=== PATIENT | male | born 1965 | race African-American/Black ===

== ENCOUNTER 2016-09-07 12:50 | Inpatient (IN) ==
[2016-09-07] MEDS ORDERED: VANCOMYCIN INJ 1,000 MG in SODIUM CHLORIDE 0.9% 250 ML IV STA (13:36)
--- NOTE | 2016-09-07 13:44 | Emergency Department Note ---
Enrique Fernandez Manpreet, am scribing for, and in the presence of, Alex Almanza MD 13: 39. Cami Fernandez James D, MD, personally performed the services described in this documentation, ascribed by Hernandez Nunez in my presence, and it is both accurate and complete [id number] . Arrival - Arrival Chief Complaint: Abscess Stated Complaint: left knee abscess ED Nursing Triage Note: c/o having abscess to the left upper leg., states it started on thu., states now the leg is very painful, patient has LBKA, Mode of Arrival: Ambulatory Limitations: No Limitations Source: Patient Time Seen by Provider: 09/07/16 13:30 - History of Present Illness HPI Narrative: Pt is a 51 y/o male, with PMHx of HTN, left BKA, IDDM, and colon CA, who presents to the ED with CC of an abscess that he noticed started as a small bump on 09/03/16 on his left leg. Pt has a left BKA and the abscess has increased in area and the pt c/o pain and drainage, but denies fever or chills. Pt went to the [facility] and noticed the abscess grew on 09/04/16 so he went to the ED in [place], [place]. No other pains/complaints reported to ED. Onset (ago): day(s) (09/03/16) Consistency: constant Severity: moderate Severity scale (1-10): 4 Quality: aching Allergies/Adverse Reactions: Allergies Allergy/AdvReac Type Severity Reaction Status Date / Time No Known Allergies Allergy Verified 09/07/16 13:10 Home Medications: Home Medications Medication Instructions Recorded Confirmed Type Allopurinol 300 mg PO DAILY 09/07/16 09/07/16 History Gemfibrozil [Lopid] 600 mg PO DAILY 09/07/16 09/07/16 History Indomethacin [Indomethacin Cap] 50 mg PO QID PRN 09/07/16 09/07/16 History Insulin Glargine [Lantus] 96 unit SUBCUT QPM 09/07/16 09/07/16 History Losartan/Hydrochlorothiazide 1 each PO DAILY 09/07/16 09/07/16 History [Losartan-Hctz 100-25 mg Tab] Lovastatin 40 mg PO DAILY 09/07/16 09/07/16 History Pantoprazole Tab [Protonix Tab] 40 mg PO DAILY 09/07/16 09/07/16 History amLODIPine [Norvasc] 5 mg PO DAILY 09/07/16 09/07/16 History hydrALAZINE TAB [Apresoline Tab] 100 mg PO DAILY 09/07/16 09/07/16 History sitaGLIPtin [Januvia] 100 mg PO DAILY 09/07/16 09/07/16 History Review of System - Review of System 12 point system: reviewed and no additional remarkable complaints except as stated - Review of System Constitutional: Absent: chills, diaphoresis, fever, weakness Head/Ears/Nose/Throat: Absent: sore throat Respiratory: Absent: cough, respiratory distress Cardiovascular: Absent: chest pain, dyspnea on exertion Gastrointestinal: Absent: abdominal pain, nausea, vomiting Genitourinary male: Absent: dysuria Skin: Present: change in color, other (Abscess on left leg with discharge) Neurological: Absent: numbness, paresthesias Medical,Surgical,& Family Hx - Medical History Cardio: History of: Hypertension HEENT: History of: Eye Problem (GLASSES LASER) Endocrine: History of: Diabetes Mellitus (IDDM) Genitourinary: History of: Kidney Stones Gastrointestinal: History of: GI Problems (COLON MASS HITAL HERNIA) Other: History of: Cancer (COLON CA) - Surgical History HEENT Surgeries: Surgical HX of: Eye Surgery Abdominal Surgeries: Surgical HX of: Colonoscopy, EGD Orthopedic Surgeries: Surgical HX of;: Orthopedic Surgery (LEFT LEG AMPUTATION) - Family History Family History: Reports;: Family Cancer (MOM), Family Diabetes (PARENTS SISTER BROTHER), Family Heart Disease (DAD) - Social History Smoking Status: Never smoker Frequency of Alcohol Use: Frequently Type of Drug Use: None Exam Vital Signs: Vital Signs Temperature 98.9 F 09/07/16 13:04 Pulse Rate 97 H 09/07/16 13:04 Respiratory Rate 18 09/07/16 13:04 Blood Pressure 169/89 09/07/16 13:04 O2 Sat by Pulse Oximetry 98 09/07/16 13:04 GENERAL: This is a well-nourished well-developed black male in no apparent distress. VITAL SIGNS: Reviewed HEENT: Head is atraumatic and normocephalic. Pupils are equal round react to light. Extraocular movements are intact. Oropharynx is benign with moist mucous membranes. NECK: Neck is soft and supple without tenderness. There are no masses. There is no lymphadenopathy. LUNGS: Lungs are clear to auscultation. Chest rises symmetrically. There is no chest wall tenderness. CV: Heart is regular rate and rhythm without murmurs rubs or gallops. ABDOMEN: Abdomen is soft, nontender to palpation. There are no abdominal abnormal masses palpated. There is no organomegaly. Bowel sounds are present and active. SKIN: Patient has an area of induration, erythema, and central fluctuance in the left posterior thigh. This area is at the edge of prosthetic contact. No rash. EXTREMITIES: Patient has full range of motion without tenderness. There is no pedal edema. NEUROLOGIC: Awake alert and oriented 4. Cranial nerves II through XII are grossly intact. Motor is 5 over 5 in all extremities bilaterally. Course - Consultations Consultation #1: Discussed with Dr. Natarajan. Patient will be admitted to his service. Patient will undergo I&D of abscess of left lower extremity in the a.m. IV vancomycin was given to the patient in the emergency department. Initial orders written for Dr. Natarajan. He will assume patient's care upon arrival to the [facility]. Time: 13:44 Results - Labs CBC & BMP: 09/07/16 14:02 09/07/16 14:02 Lab Results: I have reviewed the patients labs - Diagnostic Findings Procedure: X-ray: image reviewed by me (Left femur x-ray: No evidence of soft tissue gas. No evidence of fracture.) Disposition Clinical Impression: Abscess of left lower extremity, Diabetes mellitus, Anemia Case discussed with: patient, patient's family Disposition: Still a Patient Condition: Stable Time of Disposition: 13:43
[2016-09-07 14:05] LABS: Basophils # 0.1 10*3/uL (0.0-0.2); Basophils % 0.6 % (0.0-0.8); Eosinophils # 0.2 10*3/uL (0.0-0.87); Eosinophils % 2.8 % (0.00-10.9); Hemoglobin 9.2 GM/DL (14.0-18.0); Immature Granulocytes % 0.5 %; Immature Granulocytes Absolute 0.04 #; Lymphocytes # 1.8 10*3/uL (1.4-4.0); Lymphocytes % 21.3 % (21.2-54.2); Mean Corpuscular HGB Conc 36.8 GM/DL (32-36); Mean Corpuscular Hemoglobin 31 PG (27-34); Mean Corpuscular Volume 85.3 FL (87-102); Mean Platelet Volume 11.8 FL (9.6-12.0); Monocytes # 0.7 10*3/uL (0.11-0.8); Monocytes % 8.2 % (1.7-12.7); Neutrophils # 5.7 10*3/uL (1.4-7.4); Neutrophils % 66.6 % (38.7-73.9); Platelet Count 179 T/CUMM (130-400); Red Blood Count 2.93 MC/CUMM (3.8-5.5); Red Cell Distribution Width 13.2 % (9.3-17.3); White Blood Count 8.5 T/CUMM (4-12)
--- NOTE | 2016-09-07 14:12 | XRay Report ---
XR femur LT Indication: Abscess Comparison: None available Findings: No evidence of acute fracture seen. Below the knee amputation has been performed. There is small amount of periosteal bone formation of the mid femur likely related to previous injury. The alignment of the joints appears normal. No degenerative change is present. No soft tissue abnormality is seen. Impression: No evidence of acute findings demonstrated. PROCEDURE INTERPRETED AT [facility] DEPARTMENT OF RADIOLOGY Final Report Signed by: Dr. Daniele Cabrera
[2016-09-07] MEDS ORDERED: VANCOMYCIN 1,000 MG VIAL ONE (14:21)
[2016-09-07] MEDS: SODIUM CHLORIDE 0.9% 1,000 ML IV SCH ×2 (14:30→17:20)
[2016-09-07 14:40] LABS: Calcium 9.2 MG/DL (8.5-10.1); Osmolality,Calculated 275.1 MOS/KG (273-304); Potassium 3.6 MMOL/L (3.5-5.1)
[2016-09-07] MEDS ORDERED: ACETAMINOPHEN 325 MG TABLET PO PRN (16:38)
[2016-09-07] MEDS ORDERED: GLUCAGON 1 MG VIAL IM PRN (16:38)
[2016-09-07] MEDS ORDERED: DEXTROSE 50% 25 GM/50 ML VIAL IV PRN (16:38)
[2016-09-07] MEDS ORDERED: ONDANSETRON 4 MG/2 ML VIAL IV PRN (16:38)
[2016-09-07] MEDS: INSULIN LISPRO 100 UNIT/ML SUBCUT SCH ×2 (17:20→20:53)
[2016-09-07] MEDS: LEVOFLOXACIN INJ 750 MG in PREMIX 1 EACH IV SCH (17:21)
[2016-09-08] MEDS: SODIUM CHLORIDE 0.9% 1,000 ML IV SCH ×3 (01:10→21:36)
[2016-09-08] MEDS: PANTOPRAZOLE 40 MG TABLET PO SCH (08:33)
[2016-09-08] MEDS: INSULIN LISPRO 100 UNIT/ML SUBCUT SCH ×4 (08:47→21:07)
--- NOTE | 2016-09-08 10:10 | General Surg History&Physical ---
Assessment and Plan - Time spent with patient Time spent with patient: Greater than 30 minutes (1) Hypertension Status: Acute Assessment and plan: 51-year-old -[place] male with history of colectomy for colon cancer, diabetes, hypertension, hyperlipidemia, peripheral vascular disease status post left BKA admitted by Dr. Natarajan with necrotic ulcer of the posterior left leg. Patient has been started on antibiotics and he is n.p.o. He will be taken to the operating room today for excisional debridement of this wound. We will go ahead and restart his home medications, sliding scale insulin for his diabetes, and continue to monitor. Dr. Natarajan has seen and examined patient. Current Visit: Yes (2) Gout Status: Acute Current Visit: Yes (3) Hyperlipidemia Status: Acute Current Visit: Yes (4) Abscess of left lower extremity Status: Acute Current Visit: Yes (5) Diabetes mellitus Status: Acute Current Visit: Yes (6) Anemia Status: Acute Current Visit: Yes History of Present Illness Chief complaint: Left leg wound History of present illness: Mr. Deng is a 51 year old -[place] male with history of diabetes, PVD, and hypertension admitted by Dr. Natarajan through the emergency room last night with a necrotic wound to the posterior left leg. Patient states it started around Thursday or Thursday as a small boil in progress from there. [place] little emergency room there and he said they gave him some pain medicine and sent him home. Patient states is worsened over the last couple of days. He is complaining of pain, denies fevers, headache, chest pain, shortness of breath, abdominal pain, or right lower extremity edema. 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 Patient also has a history of a colectomy for colon cancer done in 2015. Patient is afebrile and his vital signs are stable at this time. Patient has a normal white count, creatinine at his baseline at 1.4, blood sugars are elevated to over 200. Wound cultures done in the ED showed gram-positive cocci. Upon exam patient has a 4 x 5 cm indurated area with cellulitis w central necrosis on the posterior left leg just proximal to the bend in the knee. Patient has been using his prosthetic despite having this wound. Home Medications Medication Instructions Recorded Confirmed Type Allopurinol 300 mg PO DAILY 09/07/16 09/07/16 History Gemfibrozil [Lopid] 600 mg PO DAILY 09/07/16 09/07/16 History Indomethacin [Indomethacin Cap] 50 mg PO QID PRN 09/07/16 09/07/16 History Insulin Glargine [Lantus] 80 unit SUBCUT QPM 09/07/16 09/07/16 History Losartan/Hydrochlorothiazide 1 each PO DAILY 09/07/16 09/07/16 History [Losartan-Hctz 100-25 mg Tab] Lovastatin 40 mg PO DAILY 09/07/16 09/07/16 History Pantoprazole Tab [Protonix Tab] 40 mg PO DAILY 09/07/16 09/07/16 History amLODIPine [Norvasc] 5 mg PO DAILY 09/07/16 09/07/16 History hydrALAZINE TAB [Apresoline Tab] 100 mg PO DAILY 09/07/16 09/07/16 History sitaGLIPtin [Januvia] 100 mg PO DAILY 09/07/16 09/07/16 History Allergies Allergy/AdvReac Type Severity Reaction Status Date / Time No Known Allergies Allergy Verified 09/07/16 13:10 Medical,Surgical,& Family Hx - Medical History Cardio: History of: Hypertension Neurology: No history of: Seizures HEENT: History of: Eye Problem (GLASSES LASER) Endocrine: History of: Diabetes Mellitus (IDDM) Genitourinary: History of: Kidney Stones Gastrointestinal: History of: GI Problems (COLON MASS HITAL HERNIA) Musculoskeletal: History of: Musculoskeletal Problems (Arthritis in R knee) Other: History of: Cancer (COLON CA) - Surgical History HEENT Surgeries: Surgical HX of: Eye Surgery Abdominal Surgeries: Surgical HX of: Abdominal Surgery (Colectomy 2014), Colonoscopy, EGD Orthopedic Surgeries: Surgical HX of;: Orthopedic Surgery (LEFT LEG AMPUTATION) - Family History Family History: Reports;: Family Cancer (MOM), Family Diabetes (PARENTS SISTER BROTHER), Family Heart Disease (DAD) - Social History Smoking Status: Never smoker Frequency of Alcohol Use: Frequently Type of Drug Use: None Marital Status: Lives With:: Spouse Functional capacity: independent ambulation (Uses a left lower extremity prosthetic) Exam - Constitutional Vitals: Period Temp Pulse Resp BP Sys/Nicolas Pulse Ox Last 24 Hr 96.6 F-99.7 F 89-98 16-20 153-170/80-89 98-100 Exam: Constitutional System: No distress. No tremulousness. Head: Normocephalic, atraumatic. Ears, Nose and Throat System: No evidence of Otitis or Mastoiditis. No epistaxis or discharge Eyes System: Pupils equal, round, and reactive. Extraocular muscles intact. Neck: Supple, without adenopathy, No jugular venous distention. No thyromegaly, neck mass, or prior surgery apparent. Respiratory System: Chest clear to auscultation. Cardiovascular System: Heart with regular rate and rhythm. No murmur. GI System: Abdomen soft, nontender. Normo active bowel sounds present. Musculoskeletal System: limbs with no pedal edema. Diminished distal pulses on right foot. Left lower extremity amputation site is healed well with no signs of infection, proximal to the knee posteriorly is a 4 x 5 cm area of induration with cellulitis and central necrosis Neurological System: No discernable sensory deficit. No aphasia Psychiatric System: Conversation is rational Review of systems: A complete 10 system review of systems was obtained and pertinent positives and negatives per HPI Quality Measures - VTE Contraindication to Pharmacological VTE Prophylaxis: High Risk of Bleeding Results - Labs CBC & BMP: 09/07/16 14:02 09/07/16 14:02 Lab Results: I have reviewed the past 24 hour labs - Diagnostic Findings Procedure: X-ray: report reviewed by me (Femur x-ray shows no acute findings)
[2016-09-08] MEDS ORDERED: LIDOCAINE 1%/EPI INJ 20 ML VIAL ONE (10:22)
[2016-09-08] MEDS ORDERED: PROPOFOL 200 MG/20 ML VIAL IV ONE (10:30)
[2016-09-08] MEDS ORDERED: THIAMINE INJ 100 MG, FOLIC ACID INJ 1 MG, MULTIVITAMIN INJ 10 ML in SODIUM CHLORIDE 0.9... IV ONE (10:31)
[2016-09-08] MEDS ORDERED: LORazepam 2 MG/1 ML VIAL IV PRN (10:32)
[2016-09-08] MEDS ORDERED: INDOMETHACIN 25 MG CAPSULE PO PRN (10:38)
--- NOTE | 2016-09-08 11:09 | Anesthesia Post-Op ---
Anesthesia Post OP - Post Ansesthetic Evaluation Patient seen in post op: Yes Resp: within normal limits CV: within normal limits Mental: within normal limits Temp: within normal limits Gana-[id number]: within normal limits Nausea and Vomiting: within normal limits Pain: within normal limits
[2016-09-08] MEDS ORDERED: SODIUM CHLORIDE 0.9% 100 ML IV ONE (11:13)
[2016-09-08] MEDS ORDERED: MIDAZOLAM 2 MG/2 ML VIAL ONE (11:13)
[2016-09-08] MEDS ORDERED: fentaNYL 100 MCG/2 ML VIAL ONE (11:13)
--- NOTE | 2016-09-08 11:50 | Operative Note ---
Date of procedure: 09/08/16 Pre-op diagnosis: Left posterior leg ulcer Post-op diagnosis: same Procedure: Procedure performed: Excisional debridement of nonviable skin and subcutaneous tissue left posterior leg. Post debridement area 4 x 2.5 cm Procedure in detail: After informed consent was obtained patient was taken operating suite and laid on his right side. After monitored anesthesia initiated the left remaining leg was prepped and draped in usual sterile fashion. After procedural pause a 10 blade scalpel forceps Metzenbaum scissors used to perform excisional debridement removing the nonviable skin and subcutaneous tissue present. There was some purulence which was cultured and sent. I removed all the nonviable tissue. There is nothing tracking deeper. Wound was thoroughly irrigated and suctioned. There is good hemostasis and the wound was packed. Patient was taken to recovery room in stable condition. All lap needle counts correct at the end of the case. Anesthesia: MAC, local Surgeon / Physician: River Natarajan Estimated blood loss: other (Less than 10 cc) Specimens: other (Culture sent) Condition: stable Disposition: PACU Results - Labs CBC & BMP: 09/07/16 14:02 09/07/16 14:02 Discharge Plan - Discharge Medications No Action Indomethacin [Indomethacin Cap] 50 mg PO QID PRN PRN Reason: Arthritis Pain Gemfibrozil [Lopid] 600 mg PO DAILY sitaGLIPtin [Januvia] 100 mg PO DAILY hydrALAZINE TAB [Apresoline Tab] 100 mg PO DAILY Pantoprazole Tab [Protonix Tab] 40 mg PO DAILY Lovastatin 40 mg PO DAILY Losartan/Hydrochlorothiazide [Losartan-Hctz 100-25 mg Tab] 1 each PO DAILY Insulin Glargine [Lantus] 80 unit SUBCUT QPM amLODIPine [Norvasc] 5 mg PO DAILY Allopurinol 300 mg PO DAILY - Follow Up or Referral - Forms/Instructions
[2016-09-08] MEDS ORDERED: DEXTROSE 50% 25 GM/50 ML VIAL IV PRN (12:22)
[2016-09-08] MEDS ORDERED: GLUCAGON 1 MG VIAL IM PRN (12:22)
--- NOTE | 2016-09-08 12:44 | EKG Report ---
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
[2016-09-08] MEDS: LOSARTAN/HCTZ 50-12.5 MG TABLET PO SCH (14:23)
[2016-09-08] MEDS: ALLOPURINOL 300 MG TABLET PO SCH (14:24)
[2016-09-08] MEDS: sitaGLIPtin 100 MG TABLET PO SCH (14:24)
[2016-09-08] MEDS: LOVASTATIN 20 MG TABLET PO SCH (14:24)
[2016-09-08] MEDS: amLODIPine 5 MG TABLET PO SCH (14:24)
[2016-09-08] MEDS: GEMFIBROZIL 600 MG TABLET PO SCH (14:24)
[2016-09-08] MEDS: LEVOFLOXACIN INJ 750 MG in PREMIX 1 EACH IV SCH (16:37)
[2016-09-09] MEDS: SODIUM CHLORIDE 0.9% 1,000 ML IV SCH ×2 (01:24→08:30)
[2016-09-09 05:50] LABS: Basophils % 0.5 % (0.0-0.8); Eosinophils # 0.2 10*3/uL (0.0-0.87); Eosinophils % 3.7 % (0.00-10.9); Hematocrit 24.6 VOL% (42.0-52.0); Hemoglobin 8.7 GM/DL (14.0-18.0); Immature Granulocytes % 0.3 %; Immature Granulocytes Absolute 0.02 #; Lymphocytes # 1.4 10*3/uL (1.4-4.0); Lymphocytes % 23.2 % (21.2-54.2); Mean Corpuscular HGB Conc 35.4 GM/DL (32-36); Mean Corpuscular Hemoglobin 31 PG (27-34); Mean Corpuscular Volume 86.3 FL (87-102); Mean Platelet Volume 11.8 FL (9.6-12.0); Monocytes # 0.6 10*3/uL (0.11-0.8); Neutrophils # 3.8 10*3/uL (1.4-7.4); Neutrophils % 62.3 % (38.7-73.9); Platelet Count 196 T/CUMM (130-400); Red Blood Count 2.85 MC/CUMM (3.8-5.5); Red Cell Distribution Width 13.2 % (9.3-17.3); White Blood Count 6.2 T/CUMM (4-12)
[2016-09-09] MEDS: GEMFIBROZIL 600 MG TABLET PO SCH (08:27)
[2016-09-09] MEDS: ALLOPURINOL 300 MG TABLET PO SCH (08:27)
[2016-09-09] MEDS: amLODIPine 5 MG TABLET PO SCH (08:27)
[2016-09-09] MEDS: LOVASTATIN 20 MG TABLET PO SCH (08:27)
[2016-09-09] MEDS: sitaGLIPtin 100 MG TABLET PO SCH (08:27)
[2016-09-09] MEDS: LOSARTAN/HCTZ 50-12.5 MG TABLET PO SCH (08:27)
[2016-09-09] MEDS: PANTOPRAZOLE 40 MG TABLET PO SCH (08:27)
[2016-09-09] MEDS: INSULIN LISPRO 100 UNIT/ML SUBCUT SCH ×3 (08:28→13:56)
--- NOTE | 2016-09-09 10:44 | Discharge Summary ---
Hospital Course - Hospital Course Hospital Course: 51-year-old -[place] male with history of colectomy for colon cancer, diabetes, hypertension, hyperlipidemia, PVD with previous left BKA admitted by Dr. Natarajan on 09/07/2016 with necrotic ulcer of his posterior left leg. Patient was taken to the operating room on 09/08/2016 for excisional debridement of nonviable skin and subcutaneous tissue of the left posterior leg. the post debridement area is 4 x 2.5 cm. Patient's wound looks clean with decreased induration and no cellulitis. Wound care orders have been written and his will do them at home daily. Initial cultures are showing gram-positive cocci so patient will be discharged home on clindamycin and [place] for pain. Dr. Natarajan's office will follow up on final cultures. Patient will follow-up with Dr. Natarajan in his office in 2 weeks and patient was also instructed to not wear his prosthetic while his wound is trying to heal. Patient was given prescription for a wheelchair and walker to assist him with ambulation until he can wear prosthetic again. Complete discharge instructions were given. Care coordination, chart review, and completed discharge paperwork took approximately 35 minutes. - Time spent with patient Time with patient DS: Greater than 30 minutes Diagnosis - Discharge Diagnosis (1) Hypertension Status: Chronic (2) Gout Status: Chronic (3) Hyperlipidemia Status: Chronic (4) Abscess of left lower extremity Status: Resolved (5) Diabetes mellitus Status: Chronic (6) Anemia Status: Chronic Discharge Plan - Discharge Data Disposition: Disch To Home/Self Care Condition at Discharge: Stable Discharge Diet: advance to your usual diet Activity: ambulate only with your walker Hygiene: may shower, may tub bathe Weight Bearing at Discharge: non-weight bearing Driving: other (No driving if taking pain medications) Contact your physician if you experience:: fever over 101, Redness or swelling Wound / Dressing Care Instructions: Shower or bathe daily cleaning wound with Hibiclens, rinse with Dakin's, pack with Dakin's moistened 4 x 4, cover with dry 4 x 4s, Kerlix, and [place] wrap - Discharge Medications New HYDROcodone/ACETAMIN 7.5-325 [[place] 7.5-325] 1 tablet PO Q4H PRN #30 tablet PRN Reason: Pain Moderate (4-7) Clindamycin HCl [Clindamycin Cap] 300 mg PO QID #28 capsule Continue Indomethacin [Indomethacin Cap] 50 mg PO QID PRN PRN Reason: Arthritis Pain Gemfibrozil [Lopid] 600 mg PO DAILY sitaGLIPtin [Januvia] 100 mg PO DAILY hydrALAZINE TAB [Apresoline Tab] 100 mg PO DAILY Pantoprazole Tab [Protonix Tab] 40 mg PO DAILY Lovastatin 40 mg PO DAILY Losartan/Hydrochlorothiazide [Losartan-Hctz 100-25 mg Tab] 1 each PO DAILY Insulin Glargine [Lantus] 80 unit SUBCUT QPM amLODIPine [Norvasc] 5 mg PO DAILY Allopurinol 300 mg PO DAILY - Follow Up or Referral Follow Up: River Natarajan MD [Physician] - 2 Weeks - Forms/Instructions Exam - Constitutional Vitals: Period Temp Pulse Resp BP Sys/Nicolas Pulse Ox Last 24 Hr 97.2 F-99.3 F 77-101 16-20 125-197/67-94 95-100 Exam: 51-year-old -E[place]ian male, no acute distress, alert and oriented Chest clear CV regular rate and rhythm Abdomen obese, nontender Extremities right lower extremity with no edema, left lower extremity with well- healed BKA scar, wound posterior proximal knee is clean with minimal induration and no cellulitis Discharge Results Procedures and tests throughout hospitalization: Pending Orders 09/07/16 14:05 Wound Culture Stat 09/07/16 14:12 Blood Culture Stat 09/08/16 Abscess Culture Routine Anaerobic Culture Routine Labs on day of discharge: Labs from last 24 hours 09/09/16 09/09/16 09/08/16 07:11 05:12 20:42 WBC 6.2 RBC 2.85 L Hgb 8.7 L Hct 24.6 L MCV 86.3 L MCH 31 MCHC 35.4 RDW 13.2 Plt Count 196 MPV 11.8 Neut % (Auto) 62.3 Lymph % (Auto) 23.2 [place] % (Auto) 10.0 Eos % (Auto) 3.7 Baso % (Auto) 0.5 Neut # (Auto) 3.8 Lymph # (Auto) 1.4 [place] # (Auto) 0.6 Eos # (Auto) 0.2 Baso # (Auto) 0.0 Immature Gran % 0.3 Nucleated RBC % 0.0 Immature Gran # 0.02 Nucleated RBCs # 0.00 POC Glucose 351 H 349 H 09/08/16 15:54 WBC RBC Hgb Hct MCV MCH MCHC RDW Plt Count MPV Neut % (Auto) Lymph % (Auto) [place] % (Auto) Eos % (Auto) Baso % (Auto) Neut # (Auto) Lymph # (Auto) [place] # (Auto) Eos # (Auto) Baso # (Auto) Immature Gran % Nucleated RBC % Immature Gran # Nucleated RBCs # POC Glucose 338 H Preliminary micro results at discharge 09/07/16 14:12 Blood Culture - Preliminary Blood No growth at 1 day 09/07/16 14:12 Blood Culture - Preliminary Blood No growth at 1 day 09/07/16 14:05 Wound Culture - Preliminary Abscess - Abscess Gram Positive Cocci DS: Provider Date of admission: 09/08/16 13:35 Primary care physician: COREY PATEL NP Attending physician on admission: River Natarajan MD Consults: 09/08/16 09:13 Consult to Anesthesiology [CONS] Routine Consulting Provider: Reason for Anesthesiology: Pre-op Clearance 09/09/16 08:13 Consult to Case Mgmt/Social Srvs [CONS] Routine Reason for Case Mgmt/Social Srvs: Home Health Consult Comment: daily wound care, dc today Discharging clinician: ELINA Wilkerson Expected date of discharge: 09/09/16
[2016-09-09] MEDS ORDERED: SODIUM HYPOCHLORITE 0.25% IRRIG 473 ML BOTTLE TOP SCH (11:00)
[2016-09-09 11:20] VITALS: BP 174/86
--- NOTE | 2016-09-09 14:04 | XRay Report ---
History: Soft tissue wound right fifth toe Date: 09/09/2016 Study: Right foot 2 views Comparison exam: January 09, 2015 toe x-ray There is soft tissue swelling about the right fifth toe. There is no acute fracture or dislocation. There is no plain film sign of osteomyelitis in this region. There is chronic periosteal reaction along the lateral aspect of the proximal phalanx of the right great toe without change. This may be the sequelae of healing fracture or remote osteomyelitis. There is moderate osteophyte formation and joint space narrowing at the first MTP joint. There is mild osteophyte formation at the tibiotalar joint. Impression: No evidence of acute osteomyelitis of the right fifth toe. Soft tissue swelling. Otherwise unchanged PROCEDURE INTERPRETED AT [facility] DEPARTMENT OF RADIOLOGY Final Report Signed by: Dr. Tabitha Witt
--- NOTE | 2016-09-09 14:54 | Operative Note ---
Date of procedure: 09/09/16 Pre-op diagnosis: Right fifth toe ulcer with purulent Post-op diagnosis: same Procedure: Procedure performed: Excisional debridement of right lateral fifth toe ulcer including skin, subcutaneous tissue, fascia, bone. Post debridement measurement 3 x 3 cm Procedure in detail: Just prior to discharge the patient pulled his right sock off and purulence was noted exuding from the right lateral fifth toe. X-ray showed no evidence of osteomyelitis. I discussed debridement of the nonviable tissue with the patient he elected to proceed at bedside as he has no feeling in the right foot. Right foot was prepped and a curette was used to perform an excisional debridement removing the overlying callus and nonviable tissue. Just under this appeared to be a centralized ulceration with purulence surrounded by nonviable tissue. I continued excisionally debriding the nonviable soft tissue and next extended down to the fascia and the tip of the bone. The bone did not appear soft. I removed all the nonviable tissue in the wound including portion of the bone immediately adherent to the nonviable tissue. There was good hemostasis. Dressings applied the patient tolerated the procedure well and will continue with discharge. He will follow-up next week and will continue him on clindamycin and watch wounds closely. He may require amputation if he fails to heal the right fifth toe. Y Anesthesia: none Surgeon / Physician: River Natarajan Estimated blood loss: other (Less than 10 cc) Specimens: none sent Condition: stable Disposition: PACU Results - Labs CBC & BMP: 09/09/16 05:12 09/07/16 14:02 Discharge Plan - Discharge Data Disposition: Disch To Home/Self Care - Discharge Medications New HYDROcodone/ACETAMIN 7.5-325 [[place] 7.5-325] 1 tablet PO Q4H PRN #30 tablet PRN Reason: Pain Moderate (4-7) Clindamycin HCl [Clindamycin Cap] 300 mg PO QID #28 capsule Continue Indomethacin [Indomethacin Cap] 50 mg PO QID PRN PRN Reason: Arthritis Pain Gemfibrozil [Lopid] 600 mg PO DAILY sitaGLIPtin [Januvia] 100 mg PO DAILY hydrALAZINE TAB [Apresoline Tab] 100 mg PO DAILY Pantoprazole Tab [Protonix Tab] 40 mg PO DAILY Lovastatin 40 mg PO DAILY Losartan/Hydrochlorothiazide [Losartan-Hctz 100-25 mg Tab] 1 each PO DAILY Insulin Glargine [Lantus] 80 unit SUBCUT QPM amLODIPine [Norvasc] 5 mg PO DAILY Allopurinol 300 mg PO DAILY - Follow Up or Referral Follow Up: River Natarajan MD [Physician] - 09/23/16 9:45 am - Forms/Instructions Instructions: Abscess (GEN)
== END 2016-09-09 15:37 | disposition home or self-care (01) | DRG 711 ==
LOC: N.EDINP 12:50 → N.ED 12:50 → N.EDINP 16:27 → N.3E 16:35
PROVIDERS: ADMIT Surgery; ATTEND Surgery

== ENCOUNTER 2017-09-18 21:21 | Inpatient (IN) ==
[2017-09-18] MEDS ORDERED: CEFEPIME 2,000 MG in SODIUM CHLORIDE 0.9% 100 ML IV STA (22:35)
[2017-09-18] MEDS ORDERED: VANCOMYCIN INJ 2,250 MG in SODIUM CHLORIDE 0.9% 250 ML IV STA (22:35)
[2017-09-18] MEDS ORDERED: VANCOMYCIN INJ 2,250 MG in SODIUM CHLORIDE 0.9% 500 ML IV STA (22:49)
[2017-09-18 23:14] LABS: Basophils # 0.1 10*3/uL (0.0-0.2); Basophils % 0.9 % (0.0-0.8); Eosinophils # 0.4 10*3/uL (0.0-0.87); Eosinophils % 5.5 % (0.00-10.9); Hematocrit 26.4 VOL% (42.0-52.0); Hemoglobin 9.1 GM/DL (14.0-18.0); Immature Granulocytes % 0.3 %; Immature Granulocytes Absolute 0.02 #; Lymphocytes # 2.4 10*3/uL (1.4-4.0); Lymphocytes % 31.3 % (21.2-54.2); Mean Corpuscular HGB Conc 34.5 GM/DL (32-36); Mean Corpuscular Hemoglobin 30 PG (27-34); Mean Corpuscular Volume 86.8 FL (87-102); Mean Platelet Volume 12.2 FL (9.6-12.0); Monocytes # 0.6 10*3/uL (0.11-0.8); Monocytes % 8.2 % (1.7-12.7); Neutrophils # 4.1 10*3/uL (1.4-7.4); Neutrophils % 53.8 % (38.7-73.9); Platelet Count 178 T/CUMM (130-400); Red Blood Count 3.04 MC/CUMM (3.8-5.5); Red Cell Distribution Width 13.5 % (9.3-17.3); White Blood Count 7.7 T/CUMM (4-12)
[2017-09-18 23:28] LABS: Lactic Acid 3.5 MMOL/L (0.4-2.0)
[2017-09-18 23:29] LABS: Alanine Aminotransferase 17 U/L (16-61); Albumin 4.2 G/DL (3.4-5.0); Alkaline Phosphatase 148 U/L (45-117); Aspartate Amino Transferase 26 U/L (0-37); Bilirubin,Total < 0.39 MG/DL (0.2-1.0); Blood Urea Nitrogen 32 MG/DL (7-18); Calcium 9.3 MG/DL (8.5-10.1); Glucose 86 MG/DL (74-106); Osmolality,Calculated 282.5 MOS/KG (273-304); Potassium 3.4 MMOL/L (3.5-5.1); Sodium 139 MMOL/L (136-145); Total Protein 7.8 G/DL (6.4-8.3)
[2017-09-18 23:50] LABS: Apearance,Urine CLEAR (Clear); Bilirubin,Urine Negative (Negative); Blood, Urine Negative (Negative); Glucose,Urine (UA) Negative (Negative); Ketones,Urine Negative (Negative); Nitrite,Urine Negative (Negative); Protein,Urine Negative; RBC,Urine <1 /HPF (0-4); Urine Color Straw (Yellow); Urine Specific Gravity 1.004 (1.001-1.035); Urine Urobilinogen < 2.0 EU/DL (0.2-1.0); WBC,Urine 1 /HPF (0-6)
[2017-09-19 00:18] LABS: Sedimentation Rate-Westergren 56 MM/HR (0-20)
[2017-09-19] MEDS ORDERED: SODIUM CHLORIDE 0.9% 2,000 ML IV STA (01:07)
[2017-09-19] MEDS ORDERED: ONDANSETRON 4 MG/2 ML VIAL IV PRN (02:41)
[2017-09-19] MEDS ORDERED: MORPHINE 4 MG/1 ML VIAL IV PRN (02:41)
[2017-09-19] MEDS ORDERED: ACETAMINOPHEN 325 MG TABLET PO PRN (02:41)
[2017-09-19 03:12] LABS: Lactic Acid 3.2 MMOL/L (0.4-2.0)
[2017-09-19] MEDS ORDERED: POTASSIUM CHLORIDE 20 MEQ TABLET PO ONE (04:00)
[2017-09-19] MEDS: SODIUM CHLORIDE 0.9% 1,000 ML IV SCH ×3 (04:43→21:07)
[2017-09-19] MEDS: PIPERACILLIN/TAZOBACTAM 3,375 MG in SODIUM CHLORIDE 0.9% 100 ML IV SCH ×3 (06:02→21:06)
[2017-09-19 06:07] LABS: Basophils % 0.6 % (0.0-0.8); Eosinophils # 0.4 10*3/uL (0.0-0.87); Eosinophils % 7.6 % (0.00-10.9); Eosinophils % 8.3 % (0.00-10.9); Hematocrit 24.6 VOL% (42.0-52.0); Hematocrit 24.7 VOL% (42.0-52.0); Hemoglobin 8.4 GM/DL (14.0-18.0); Hemoglobin 8.5 GM/DL (14.0-18.0); Immature Granulocytes % 0.4 %; Immature Granulocytes Absolute 0.02 #; Lymphocytes # 1.8 10*3/uL (1.4-4.0); Lymphocytes % 34.5 % (21.2-54.2); Lymphocytes % 35.1 % (21.2-54.2); Mean Corpuscular HGB Conc 34.1 GM/DL (32-36); Mean Corpuscular HGB Conc 34.4 GM/DL (32-36); Mean Corpuscular Hemoglobin 29 PG (27-34); Mean Corpuscular Hemoglobin 30 PG (27-34); Mean Corpuscular Volume 84.3 FL (87-102); Mean Corpuscular Volume 86.3 FL (87-102); Mean Platelet Volume 12.1 FL (9.6-12.0); Mean Platelet Volume 12.7 FL (9.6-12.0); Monocytes # 0.4 10*3/uL (0.11-0.8); Monocytes % 7.6 % (1.7-12.7); Neutrophils # 2.4 10*3/uL (1.4-7.4); Neutrophils # 2.6 10*3/uL (1.4-7.4); Neutrophils % 48.2 % (38.7-73.9); Neutrophils % 48.7 % (38.7-73.9); Platelet Count 178 T/CUMM (130-400); Platelet Count 179 T/CUMM (130-400); Red Blood Count 2.85 MC/CUMM (3.8-5.5); Red Blood Count 2.93 MC/CUMM (3.8-5.5); Red Cell Distribution Width 13.5 % (9.3-17.3); Red Cell Distribution Width 13.7 % (9.3-17.3); White Blood Count 5.3 T/CUMM (4-12)
[2017-09-19 06:41] LABS: Calcium 8.8 MG/DL (8.5-10.1); Osmolality,Calculated 286.3 MOS/KG (273-304); Potassium 3.6 MMOL/L (3.5-5.1); Risk Ratio 2.78; VLDL CHOLESTEROL 70.8 MG/DL
[2017-09-19 06:43] LABS: % Iron Saturation 16.9 % (18-50); Ferritin 495.1 ng/ml (26-388)
[2017-09-19 06:59] LABS: Folate 2.1 NG/ML (5.4-24.0); Vitamin B12 314 PG/ML (211-911)
[2017-09-19] MEDS ORDERED: LIDOCAINE 1% 20 ML VIAL ONE (09:08)
[2017-09-19] MEDS ORDERED: HydrOXYzine PAMOATE 25 MG CAPSULE PO PRN (10:14)
[2017-09-19] MEDS ORDERED: FLUTICASONE 50 MCG NASAL SPRAY 16 GM BOTTLE BOTH NARES PRN (10:14)
[2017-09-19] MEDS ORDERED: GLUCAGON 1 MG VIAL IM PRN (10:19)
[2017-09-19] MEDS ORDERED: DEXTROSE 50% 25 GM/50 ML VIAL IV PRN (10:19)
[2017-09-19] MEDS: amLODIPine 5 MG TABLET PO SCH (11:05)
[2017-09-19] MEDS: sitaGLIPtin 100 MG TABLET PO SCH (11:05)
[2017-09-19] MEDS: CYANOCOBALAMIN 1000 MCG/1 ML VIAL IM SCH (11:18)
[2017-09-19] MEDS ORDERED: fentaNYL 100 MCG/2 ML VIAL ONE (11:59)
[2017-09-19] MEDS ORDERED: PROPOFOL 200 MG/20 ML VIAL IV ONE (11:59)
[2017-09-19] MEDS ORDERED: MIDAZOLAM 2 MG/2 ML VIAL ONE (12:00)
[2017-09-19] MEDS: INSULIN LISPRO 100 UNIT/ML SUBCUT SCH ×3 (12:47→20:26)
[2017-09-19] MEDS: VANCOMYCIN INJ 2,250 MG in SODIUM CHLORIDE 0.9% 500 ML IV SCH (12:56)
[2017-09-19] MEDS: FERROUS SULFATE 325 MG TABLET PO SCH ×2 (15:23→20:25)
[2017-09-19] MEDS: GEMFIBROZIL 600 MG TABLET PO SCH (16:31)
[2017-09-19] MEDS: LOVASTATIN 20 MG TABLET PO SCH (20:25)
[2017-09-19] MEDS: FOLIC ACID 1 MG TABLET PO SCH (20:25)
[2017-09-19] MEDS ORDERED: INSULIN GLARGINE 100 UNIT/ML SUBCUT SCH (21:00)
[2017-09-20] MEDS: VANCOMYCIN INJ 2,250 MG in SODIUM CHLORIDE 0.9% 500 ML IV SCH ×3 (00:57→18:26)
[2017-09-20] MEDS: PIPERACILLIN/TAZOBACTAM 3,375 MG in SODIUM CHLORIDE 0.9% 100 ML IV SCH ×3 (05:39→22:51)
[2017-09-20 06:33] LABS: Basophils % 0.7 % (0.0-0.8); Eosinophils # 0.3 10*3/uL (0.0-0.87); Eosinophils % 6.6 % (0.00-10.9); Hematocrit 24.9 VOL% (42.0-52.0); Hemoglobin 8.5 GM/DL (14.0-18.0); Immature Granulocytes % 0.2 %; Immature Granulocytes Absolute 0.01 #; Lymphocytes # 1.3 10*3/uL (1.4-4.0); Lymphocytes % 29.8 % (21.2-54.2); Mean Corpuscular HGB Conc 34.1 GM/DL (32-36); Mean Corpuscular Hemoglobin 30 PG (27-34); Mean Corpuscular Volume 86.8 FL (87-102); Mean Platelet Volume 12.5 FL (9.6-12.0); Monocytes # 0.4 10*3/uL (0.11-0.8); Monocytes % 9.4 % (1.7-12.7); Neutrophils # 2.3 10*3/uL (1.4-7.4); Neutrophils % 53.3 % (38.7-73.9); Platelet Count 166 T/CUMM (130-400); Red Blood Count 2.87 MC/CUMM (3.8-5.5); Red Cell Distribution Width 13.5 % (9.3-17.3); White Blood Count 4.3 T/CUMM (4-12)
[2017-09-20 06:55] LABS: Calcium 9.1 MG/DL (8.5-10.1); Osmolality,Calculated 288.5 MOS/KG (273-304); Potassium 4.2 MMOL/L (3.5-5.1)
[2017-09-20 07:03] LABS: Lactic Acid 0.7 MMOL/L (0.4-2.0)
[2017-09-20] MEDS ORDERED: FERROUS SULFATE 324 MG PO SCH (09:00)
[2017-09-20] MEDS: FERROUS SULFATE 325 MG TABLET PO SCH ×3 (09:03→21:33)
[2017-09-20] MEDS: sitaGLIPtin 100 MG TABLET PO SCH (09:03)
[2017-09-20] MEDS: FOLIC ACID 1 MG TABLET PO SCH ×2 (09:03→21:32)
[2017-09-20] MEDS: amLODIPine 5 MG TABLET PO SCH (09:03)
[2017-09-20] MEDS: CYANOCOBALAMIN 1000 MCG/1 ML VIAL IM SCH (09:04)
[2017-09-20] MEDS: GEMFIBROZIL 600 MG TABLET PO SCH ×2 (09:04→17:19)
[2017-09-20] MEDS: ALLOPURINOL 300 MG TABLET PO SCH (09:04)
[2017-09-20] MEDS: INSULIN LISPRO 100 UNIT/ML SUBCUT SCH ×4 (09:04→21:34)
[2017-09-20] MEDS ORDERED: INSULIN GLARGINE 100 UNIT/ML SUBCUT SCH (10:46)
[2017-09-20] MEDS: SODIUM CHLORIDE 0.9% 1,000 ML IV SCH ×2 (12:16→22:05)
[2017-09-20 14:16] LABS: Sedimentation Rate-Westergren 55 MM/HR (0-20)
[2017-09-20] MEDS ORDERED: INSULIN REGULAR 100 UNIT/ML SUBCUT ONE (16:31)
[2017-09-20] MEDS: LOVASTATIN 20 MG TABLET PO SCH (21:33)
[2017-09-21 04:18] LABS: Basophils % 0.8 % (0.0-0.8); Eosinophils # 0.3 10*3/uL (0.0-0.87); Eosinophils % 5.9 % (0.00-10.9); Hematocrit 24.8 VOL% (42.0-52.0); Hemoglobin 8.6 GM/DL (14.0-18.0); Immature Granulocytes % 0.4 %; Immature Granulocytes Absolute 0.02 #; Lymphocytes # 1.7 10*3/uL (1.4-4.0); Lymphocytes % 32.6 % (21.2-54.2); Mean Corpuscular HGB Conc 34.7 GM/DL (32-36); Mean Corpuscular Hemoglobin 30 PG (27-34); Mean Corpuscular Volume 85.8 FL (87-102); Mean Platelet Volume 11.9 FL (9.6-12.0); Monocytes # 0.5 10*3/uL (0.11-0.8); Monocytes % 8.9 % (1.7-12.7); Neutrophils # 2.7 10*3/uL (1.4-7.4); Neutrophils % 51.4 % (38.7-73.9); Platelet Count 160 T/CUMM (130-400); Red Blood Count 2.89 MC/CUMM (3.8-5.5); Red Cell Distribution Width 13.1 % (9.3-17.3); White Blood Count 5.3 T/CUMM (4-12)
[2017-09-21 04:44] LABS: Osmolality,Calculated 282.8 MOS/KG (273-304); Potassium 3.9 MMOL/L (3.5-5.1)
[2017-09-21] MEDS: PIPERACILLIN/TAZOBACTAM 3,375 MG in SODIUM CHLORIDE 0.9% 100 ML IV SCH ×2 (06:06→14:00)
[2017-09-21] MEDS ORDERED: MAGNESIUM SULF RIDER 2 GM in PREMIX 1 EACH IV ONE (07:49)
[2017-09-21] MEDS: INSULIN LISPRO 100 UNIT/ML SUBCUT SCH ×2 (08:41→12:28)
[2017-09-21] MEDS: sitaGLIPtin 100 MG TABLET PO SCH (08:44)
[2017-09-21] MEDS: FERROUS SULFATE 325 MG TABLET PO SCH (08:44)
[2017-09-21] MEDS: ALLOPURINOL 300 MG TABLET PO SCH (08:45)
[2017-09-21] MEDS: GEMFIBROZIL 600 MG TABLET PO SCH (08:45)
[2017-09-21] MEDS: amLODIPine 5 MG TABLET PO SCH (08:45)
[2017-09-21] MEDS: FOLIC ACID 1 MG TABLET PO SCH (08:45)
[2017-09-21] MEDS ORDERED: CYANOCOBALAMIN 500 MCG TABLET PO SCH (09:00)
[2017-09-21] MEDS: CYANOCOBALAMIN 1000 MCG/1 ML VIAL IM SCH (09:20)
[2017-09-21] MEDS ORDERED: hydrALAZINE 20 MG/1 ML VIAL IV ONE (09:36)
[2017-09-21] MEDS ORDERED: LOSARTAN 50 MG TABLET PO SCH (10:00)
[2017-09-21 10:15] LABS: Hemoglobin A1 (Alkaline) 63.9 % (96.5-98.5); Hemoglobin S (Alkaline) 33.1 %
[2017-09-21 12:20] VITALS: BP 154/85
[2017-09-21] MEDS: VANCOMYCIN INJ 2,250 MG in SODIUM CHLORIDE 0.9% 500 ML IV SCH (12:47)
== END 2017-09-21 13:25 | disposition home health service (06) | DRG 380 ==
LOC: N.ED 21:21 → SUATTDRO 09-19 02:33 → N.EDINP 09-19 02:33 → N.3E 09-19 03:19
PROVIDERS: ADMIT Internal Medicine; ATTEND Hospitalist

== ENCOUNTER 2018-06-21 05:31 | Inpatient (IN) ==
[2018-06-21] MEDS ORDERED: VANCOMYCIN 1,000 MG VIAL ONE (05:55)
[2018-06-21] MEDS ORDERED: ceFAZolin 1,000 MG VIAL ONE (05:56)
[2018-06-21] MEDS ORDERED: ceFAZolin 1,000 MG in SYRINGE 1 EACH IV ONE (06:00)
[2018-06-21] MEDS ORDERED: VANCOMYCIN INJ 1,000 MG in SODIUM CHLORIDE 0.9% 250 ML IV ONE (06:00)
[2018-06-21] MEDS ORDERED: ACETAMINOPHEN 500 MG TABLET PO ONE (06:25)
[2018-06-21] MEDS ORDERED: GABAPENTIN 400 MG CAPSULE PO ONE (06:25)
[2018-06-21] MEDS ORDERED: FAMOTIDINE 20 MG TABLET PO ONE (06:25)
[2018-06-21] MEDS ORDERED: ROPIVACAINE 0.5% 30 ML VIAL ONE (06:28)
[2018-06-21] MEDS: LACTATED RINGERS 1,000 ML IV SCH ×4 (06:30→21:01)
[2018-06-21] MEDS ORDERED: GABAPENTIN 400 MG CAPSULE ONE (06:37)
[2018-06-21] MEDS ORDERED: FAMOTIDINE 20 MG TABLET ONE (06:37)
[2018-06-21] MEDS ORDERED: ACETAMINOPHEN 500 MG TABLET ONE (06:37)
[2018-06-21] MEDS ORDERED: TRANEXAMIC ACID 1,000 MG/10 ML VIAL ONE (06:46)
[2018-06-21] MEDS ORDERED: BUPIVACAINE SPINAL 0.75% 2 ML AMP SPINAL ONE (06:47)
[2018-06-21] MEDS ORDERED: BACITRACIN OINT 0.9 GM PACK TOP ONE (08:57)
[2018-06-21] MEDS ORDERED: SEVOFLURANE 1 UNIT/15 MINUTE INH ONE (09:41)
[2018-06-21] MEDS ORDERED: PROPOFOL 200 MG/20 ML VIAL IV ONE (09:41)
[2018-06-21] MEDS ORDERED: fentaNYL 100 MCG/2 ML VIAL ONE (09:42)
[2018-06-21] MEDS ORDERED: MIDAZOLAM 2 MG/2 ML VIAL ONE (09:42)
[2018-06-21] MEDS ORDERED: ONDANSETRON 4 MG/2 ML VIAL ONE ×2 (09:43→09:53)
[2018-06-21] MEDS ORDERED: GLYCOPYRROLATE 0.4 MG/2 ML VIAL ONE (09:43)
[2018-06-21] MEDS ORDERED: KETOROLAC 30 MG/1 ML VIAL ONE (09:43)
[2018-06-21] MEDS ORDERED: KETAMINE 500 MG/10 ML VIAL ONE (09:43)
[2018-06-21] MEDS ORDERED: DEXAMETHASONE 4 MG/1 ML VIAL ONE (09:43)
[2018-06-21] MEDS ORDERED: ETOMIDATE 40 MG/20 ML VIAL IV ONE (09:43)
[2018-06-21] MEDS ORDERED: LACTATED RINGERS 1,000 ML IV ONE (09:44)
[2018-06-21] MEDS ORDERED: PROPOFOL 500 MG/50 ML BOTTLE IV ONE (09:44)
[2018-06-21] MEDS ORDERED: ROCURONIUM 100 MG/10 ML VIAL IV ONE (09:44)
[2018-06-21] MEDS ORDERED: PHENYLEPHRINE 1 MG/10 ML SYRINGE IV ONE (09:44)
[2018-06-21] MEDS ORDERED: NEOSTIGMINE 10 MG/10 ML VIAL ONE (09:44)
[2018-06-21] MEDS ORDERED: SODIUM CHLORIDE 0.9% 100 ML IV ONE (09:44)
[2018-06-21] MEDS ORDERED: HYDROmorphone 2 MG/1 ML VIAL ONE (09:53)
[2018-06-21] MEDS ORDERED: HYDROmorphone 2 MG/1 ML VIAL IV PRN (09:56)
[2018-06-21] MEDS ORDERED: ONDANSETRON 4 MG/2 ML VIAL IV PRN ×2 (09:56→09:59)
[2018-06-21] MEDS ORDERED: KETOCONAZOLE 2% CREAM 30 GM TUBE TOP PRN (09:56)
[2018-06-21] MEDS ORDERED: GLUCAGON 1 MG VIAL IM PRN (09:58)
[2018-06-21] MEDS ORDERED: DEXTROSE 50% 25 GM/50 ML VIAL IV PRN (09:58)
[2018-06-21] MEDS ORDERED: MORPHINE 4 MG/1 ML VIAL IV PRN (09:59)
[2018-06-21] MEDS ORDERED: oxyCODONE IR 5 MG TABLET PO PRN ×2 (09:59)
[2018-06-21] MEDS ORDERED: diphenhydrAMINE CAP 25 MG CAPSULE PO PRN (09:59)
[2018-06-21] MEDS ORDERED: MAGNESIUM HYDROXIDE SUSP 30 ML UDCUP PO PRN (09:59)
[2018-06-21] MEDS ORDERED: DEXTROSE 50% 25 GM/50 ML SYRINGE IV PRN (11:00)
[2018-06-21] MEDS: INSULIN LISPRO 100 UNIT/ML SUBCUT SCH ×3 (12:30→20:54)
[2018-06-21] MEDS: ceFAZolin 2,000 MG in PREMIX 1 EACH IV SCH (17:47)
[2018-06-21] MEDS: KETOROLAC 30 MG/1 ML VIAL IV SCH ×2 (17:48→22:53)
[2018-06-21] MEDS: FLUTICASONE 50 MCG NASAL SPRAY 16 GM BOTTLE BOTH NARES PRN (20:51)
[2018-06-21] MEDS: DOCUSATE SODIUM 100 MG CAPSULE PO SCH (20:52)
[2018-06-21] MEDS: GEMFIBROZIL 600 MG TABLET PO SCH (20:52)
[2018-06-21] MEDS: CETIRIZINE 10 MG TABLET PO PRN (20:52)
[2018-06-21] MEDS: INSULIN GLARGINE 100 UNIT/ML SUBCUT SCH (20:53)
[2018-06-22] MEDS: ceFAZolin 2,000 MG in PREMIX 1 EACH IV SCH (01:37)
[2018-06-22] MEDS: KETOROLAC 30 MG/1 ML VIAL IV SCH ×2 (03:34→11:00)
[2018-06-22] MEDS: FONDAPARINUX 2.5 MG/0.5 ML SYRINGE SUBCUT SCH (05:45)
[2018-06-22] MEDS: LACTATED RINGERS 1,000 ML IV SCH (05:45)
[2018-06-22 06:25] LABS: Hematocrit 19.5 VOL% (42.0-52.0); Hemoglobin 6.7 GM/DL (14.0-18.0); Immature Granulocytes % 0.6 %; Immature Granulocytes Absolute 0.05 #; Lymphocytes % 11.1 % (21.2-54.2); Mean Corpuscular HGB Conc 34.4 GM/DL (32-36); Mean Corpuscular Volume 84.4 FL (87-102); Mean Platelet Volume 13.5 FL (9.6-12.0); Monocytes % 8.4 % (1.7-12.7); Neutrophils % 79.9 % (38.7-73.9); Platelet Count 120 T/CUMM (130-400); Red Blood Count 2.31 MC/CUMM (3.8-5.5); Red Cell Distribution Width 13.2 % (9.3-17.3); White Blood Count 8.7 T/CUMM (4-12)
[2018-06-22 06:47] LABS: Calcium 8.5 MG/DL (8.5-10.1); Osmolality,Calculated 284.7 MOS/KG (273-304)
[2018-06-22] MEDS ORDERED: SODIUM CHLORIDE 0.9% 1,000 ML IV PRN (07:27)
[2018-06-22] MEDS: DOCUSATE SODIUM 100 MG CAPSULE PO SCH ×2 (08:03→21:03)
[2018-06-22] MEDS: ALLOPURINOL 300 MG TABLET PO SCH (08:03)
[2018-06-22] MEDS: GEMFIBROZIL 600 MG TABLET PO SCH ×2 (08:03→21:03)
[2018-06-22] MEDS: FOLIC ACID 1 MG TABLET PO SCH (08:03)
[2018-06-22] MEDS: INSULIN LISPRO 100 UNIT/ML SUBCUT SCH ×4 (08:04→21:11)
[2018-06-22] MEDS: SIMVASTATIN 20 MG TABLET PO SCH (08:04)
[2018-06-22] MEDS: sitaGLIPtin 100 MG TABLET PO SCH (08:04)
[2018-06-22] MEDS: PANTOPRAZOLE 40 MG TABLET PO SCH (08:04)
[2018-06-22] MEDS: LOSARTAN 50 MG TABLET PO SCH (08:04)
[2018-06-22] MEDS: amLODIPine 5 MG TABLET PO SCH (08:04)
[2018-06-22] MEDS: CETIRIZINE 10 MG TABLET PO PRN (08:09)
[2018-06-22] MEDS ORDERED: KETOROLAC 30 MG/1 ML VIAL IV SCH (12:00)
[2018-06-22] MEDS: MORPHINE 4 MG/1 ML VIAL IV PRN (14:01)
[2018-06-22] MEDS ORDERED: CELECOXIB 200 MG CAPSULE PO SCH (16:00)
[2018-06-22] MEDS: FLUTICASONE 50 MCG NASAL SPRAY 16 GM BOTTLE BOTH NARES PRN (21:03)
[2018-06-22] MEDS: INSULIN GLARGINE 100 UNIT/ML SUBCUT SCH (21:03)
[2018-06-23 04:47] LABS: Basophils % 0.4 % (0.0-0.8); Eosinophils # 0.1 10*3/uL (0.0-0.87); Eosinophils % 1.7 % (0.00-10.9); Hematocrit 21.5 VOL% (42.0-52.0); Hemoglobin 7.2 GM/DL (14.0-18.0); Immature Granulocytes % 0.4 %; Immature Granulocytes Absolute 0.03 #; Lymphocytes # 1.4 10*3/uL (1.4-4.0); Lymphocytes % 19.7 % (21.2-54.2); Mean Corpuscular HGB Conc 33.5 GM/DL (32-36); Mean Corpuscular Volume 86.3 FL (87-102); Mean Platelet Volume 12.1 FL (9.6-12.0); Monocytes % 8.8 % (1.7-12.7); Platelet Count 105 T/CUMM (130-400); Red Blood Count 2.49 MC/CUMM (3.8-5.5); Red Cell Distribution Width 13.3 % (9.3-17.3)
[2018-06-23 05:03] LABS: Calcium 7.8 MG/DL (8.5-10.1); Osmolality,Calculated 287.3 MOS/KG (273-304)
[2018-06-23] MEDS ORDERED: FUROSEMIDE 40 MG/4 ML VIAL IV PRN (06:30)
[2018-06-23] MEDS ORDERED: SODIUM CHLORIDE 0.9% 1,000 ML IV PRN (06:30)
[2018-06-23] MEDS: INSULIN LISPRO 100 UNIT/ML SUBCUT SCH ×4 (08:03→20:53)
[2018-06-23] MEDS: SIMVASTATIN 20 MG TABLET PO SCH (08:42)
[2018-06-23] MEDS: DOCUSATE SODIUM 100 MG CAPSULE PO SCH ×2 (08:42→20:52)
[2018-06-23] MEDS: GEMFIBROZIL 600 MG TABLET PO SCH ×2 (08:42→20:52)
[2018-06-23] MEDS: LOSARTAN 50 MG TABLET PO SCH (08:42)
[2018-06-23] MEDS: CETIRIZINE 10 MG TABLET PO PRN (08:43)
[2018-06-23] MEDS: sitaGLIPtin 100 MG TABLET PO SCH (08:43)
[2018-06-23] MEDS: FOLIC ACID 1 MG TABLET PO SCH (08:43)
[2018-06-23] MEDS: MORPHINE 4 MG/1 ML VIAL IV PRN ×3 (08:43→16:47)
[2018-06-23] MEDS: ALLOPURINOL 300 MG TABLET PO SCH (08:43)
[2018-06-23] MEDS: amLODIPine 5 MG TABLET PO SCH (08:43)
[2018-06-23] MEDS: PANTOPRAZOLE 40 MG TABLET PO SCH (08:44)
[2018-06-23] MEDS: FLUTICASONE 50 MCG NASAL SPRAY 16 GM BOTTLE BOTH NARES PRN (09:08)
[2018-06-23 18:13] LABS: Hematocrit 26.4 VOL% (42.0-52.0); Hemoglobin 8.9 GM/DL (14.0-18.0)
[2018-06-23] MEDS: INSULIN GLARGINE 100 UNIT/ML SUBCUT SCH (20:52)
[2018-06-24] MEDS: FONDAPARINUX 2.5 MG/0.5 ML SYRINGE SUBCUT SCH (04:31)
[2018-06-24 05:33] LABS: Basophils % 0.4 % (0.0-0.8); Eosinophils # 0.3 10*3/uL (0.0-0.87); Eosinophils % 3.1 % (0.00-10.9); Hematocrit 24.3 VOL% (42.0-52.0); Hemoglobin 8.2 GM/DL (14.0-18.0); Immature Granulocytes % 0.8 %; Immature Granulocytes Absolute 0.07 #; Lymphocytes # 1.4 10*3/uL (1.4-4.0); Lymphocytes % 16.3 % (21.2-54.2); Mean Corpuscular HGB Conc 33.7 GM/DL (32-36); Mean Corpuscular Volume 86.2 FL (87-102); Mean Platelet Volume 12.2 FL (9.6-12.0); Monocytes % 9.3 % (1.7-12.7); Neutrophils % 70.1 % (38.7-73.9); Platelet Count 113 T/CUMM (130-400); Red Blood Count 2.82 MC/CUMM (3.8-5.5); Red Cell Distribution Width 13.3 % (9.3-17.3); White Blood Count 8.4 T/CUMM (4-12)
[2018-06-24 05:53] LABS: Calcium 7.8 MG/DL (8.5-10.1); Osmolality,Calculated 285.4 MOS/KG (273-304)
[2018-06-24 07:39] VITALS: BP 133/55
[2018-06-24] MEDS: INSULIN LISPRO 100 UNIT/ML SUBCUT SCH (08:27)
[2018-06-24] MEDS ORDERED: FERROUS SULFATE 325 MG TABLET PO SCH (09:00)
[2018-06-24] MEDS: amLODIPine 5 MG TABLET PO SCH (09:24)
[2018-06-24] MEDS: ALLOPURINOL 300 MG TABLET PO SCH (09:24)
[2018-06-24] MEDS: DOCUSATE SODIUM 100 MG CAPSULE PO SCH (09:24)
[2018-06-24] MEDS: sitaGLIPtin 100 MG TABLET PO SCH (09:24)
[2018-06-24] MEDS: FOLIC ACID 1 MG TABLET PO SCH (09:24)
[2018-06-24] MEDS: SIMVASTATIN 20 MG TABLET PO SCH (09:24)
[2018-06-24] MEDS: CETIRIZINE 10 MG TABLET PO PRN (09:25)
[2018-06-24] MEDS: PANTOPRAZOLE 40 MG TABLET PO SCH (09:25)
[2018-06-24] MEDS: LOSARTAN 50 MG TABLET PO SCH (09:25)
[2018-06-24] MEDS: GEMFIBROZIL 600 MG TABLET PO SCH (09:25)
== END 2018-06-24 11:15 | disposition home health service (06) | DRG 302 ==
LOC: N.OR 05:31 → N.SDSINP 05:33 → N.3E 09:59
PROVIDERS: ADMIT Orthopaedic Surgery; ATTEND Orthopaedic Surgery

== ENCOUNTER 2020-04-18 11:11 | Inpatient (IN) ==
[2020-04-18] MEDS ORDERED: FUROSEMIDE 100 MG/10 ML VIAL IV STA (11:41)
[2020-04-18] MEDS ORDERED: FUROSEMIDE 40 MG/4 ML VIAL ONE ×2 (11:42→11:46)
[2020-04-18] MEDS ORDERED: MORPHINE 4 MG/1 ML VIAL IV STA (11:54)
[2020-04-18 11:59] LABS: Basophils % 0.1 % (0.0-0.8); Hematocrit 26.2 VOL% (42.0-52.0); Immature Granulocytes % 1.2 %; Immature Granulocytes Absolute 0.12 #; Lymphocytes # 1.2 10*3/uL (1.4-4.0); Lymphocytes % 11.6 % (21.2-54.2); Mean Corpuscular HGB Conc 34.4 GM/DL (32-36); Mean Corpuscular Volume 84.8 FL (87-102); Monocytes % 4.4 % (1.7-12.7); Neutrophils % 82.7 % (38.7-73.9); Platelet Count 119 T/CUMM (130-400); Red Blood Count 3.09 MC/CUMM (3.8-5.5); Red Cell Distribution Width 12.5 % (9.3-17.3); White Blood Count 10.1 T/CUMM (4-12)
[2020-04-18] MEDS ORDERED: AZITHROMYCIN INJ 500 MG in SODIUM CHLORIDE 0.9% 250 ML IV STA (12:03)
[2020-04-18] MEDS ORDERED: cefTRIAXone 1,000 MG in SODIUM CHLORIDE 0.9% 100 ML IV STA (12:03)
[2020-04-18 12:34] LABS: Ferritin 4135.1 ng/ml (26-388)
[2020-04-18] MEDS ORDERED: SODIUM CHLORIDE 0.9% 3,800 ML IV ONE (13:00)
[2020-04-18] MEDS ORDERED: SODIUM CHLORIDE 0.9% 1,000 ML IV STA (13:03)
[2020-04-18 13:38] LABS: Alkaline Phosphatase 110 U/L (45-117); Calcium 7.9 MG/DL (8.5-10.1)
[2020-04-18 13:39] LABS: Alanine Aminotransferase 15 U/L (16-61); Albumin 2.9 G/DL (3.4-5.0); Aspartate Amino Transferase 45 U/L (0-37); Bilirubin,Total 0.72 MG/DL (0.2-1.0); Blood Urea Nitrogen 28 MG/DL (7-18); Estimated Glom Filtration Rate 61 ML/MIN; Glucose 369 MG/DL (74-106); Osmolality,Calculated 273.4 MOS/KG (273-304); Potassium 4.7 MMOL/L (3.5-5.1); Sodium 126 MMOL/L (136-145); Total Protein 7.2 G/DL (6.4-8.3)
[2020-04-18 13:40] LABS: Carbon Dioxide 16 MMOL/L (21-32)
[2020-04-18 14:00] LABS: Bilirubin,Urine Negative (Negative); Blood, Urine Small mg/dL (Negative); Glucose,Urine (UA) Negative (Negative); Hyaline Casts,Urine 1 /LPF (0-3); Ketones,Urine Negative (Negative); Mucus,Urine Occasional /LPF (Occasional); Nitrite,Urine Negative (Negative); Protein,Urine 100 MG/DL; RBC,Urine <1 /HPF (0-4); Urine Appearance CLEAR (Clear); Urine Color Yellow (Yellow); Urine Specific Gravity 1.011 (1.001-1.035); Urine Urobilinogen < 2.0 EU/DL (0.2-1.0); WBC,Urine 1 /HPF (0-6)
[2020-04-18] MEDS ORDERED: ONDANSETRON 4 MG/2 ML VIAL IV PRN (14:23)
[2020-04-18] MEDS ORDERED: LACTULOSE 20 GM/30 ML UDCUP PO PRN (14:23)
[2020-04-18] MEDS ORDERED: GLUCAGON 1 MG VIAL IM PRN ×2 (14:23)
[2020-04-18] MEDS ORDERED: DEXTROSE 50% 25 GM/50 ML VIAL IV PRN ×2 (14:23)
[2020-04-18] MEDS ORDERED: PANTOPRAZOLE 40 MG TABLET PO SCH (14:30)
[2020-04-18] MEDS: SODIUM CHLORIDE 0.9% 1,000 ML IV SCH (16:00)
[2020-04-18] MEDS: DEXAMETHASONE 4 MG/1 ML VIAL IV SCH (16:38)
[2020-04-18] MEDS: ENOXAPARIN 30 MG/0.3 ML SYRINGE SUBCUT SCH (16:39)
[2020-04-18] MEDS: ASCORBIC ACID 500 MG TABLET PO SCH ×2 (16:39→21:53)
[2020-04-18] MEDS: FAMOTIDINE 20 MG TABLET PO SCH ×2 (16:39→21:53)
[2020-04-18] MEDS: CETIRIZINE 10 MG TABLET PO SCH (16:40)
[2020-04-18] MEDS: ZINC GLUCONATE 50 MG TABLET PO SCH (16:40)
[2020-04-18] MEDS ORDERED: PNEUMOCOCCAL VACCINE (23 VALENT) 0.5 ML VIAL IM ONE (16:50)
[2020-04-18 16:57] LABS: ABG Base Excess -5.5 MMOL/L (-2.5-2.5); ABG HCO3 19.7 MMOL/L (20-26); ABG Oxygen Saturation 84.1 % (95-100); ABG PCO2 32.5 MM HG (35-48); ABG PH 7.375 (7.35-7.45); ABG PO2 54.1 MM HG (80-95); ABG TCO2 17.6 MMOL/L (23-27)
[2020-04-18] MEDS ORDERED: REMDESIVIR 200 MG in SODIUM CHLORIDE 0.9% 210 ML IV ONE (17:30)
[2020-04-18] MEDS: INSULIN LISPRO 100 UNIT/ML SUBCUT SCH ×2 (18:09→21:52)
[2020-04-18 20:38] LABS: ABG Base Excess -6.3 MMOL/L (-2.5-2.5); ABG Oxygen Saturation 82.4 % (95-100); ABG PCO2 36.3 MM HG (35-48); ABG PH 7.327 (7.35-7.45); ABG PO2 54.9 MM HG (80-95); ABG TCO2 17.6 MMOL/L (23-27); Allen Test Positive; Pt O2 Delivery Device BIPAP
[2020-04-18] MEDS: ACETAMINOPHEN 325 MG TABLET PO PRN (21:53)
[2020-04-18] MEDS: ALBUTEROL INHALER 18 GM INH SCH ×2 (21:54→22:01)
[2020-04-19] MEDS: SODIUM CHLORIDE 0.9% 1,000 ML IV SCH ×2 (02:05→13:41)
[2020-04-19] MEDS: ENOXAPARIN 30 MG/0.3 ML SYRINGE SUBCUT SCH ×2 (04:35→17:34)
[2020-04-19] MEDS: ALBUTEROL INHALER 18 GM INH SCH ×4 (04:35→22:45)
[2020-04-19 05:13] LABS: Basophils % 0.1 % (0.0-0.8); Hematocrit 27.9 VOL% (42.0-52.0); Hemoglobin 9.5 GM/DL (14.0-18.0); Immature Granulocytes % 1.2 %; Immature Granulocytes Absolute 0.12 #; Lymphocytes # 0.6 10*3/uL (1.4-4.0); Lymphocytes % 5.7 % (21.2-54.2); Mean Corpuscular HGB Conc 34.1 GM/DL (32-36); Mean Corpuscular Volume 84.8 FL (87-102); Mean Platelet Volume 12.4 FL (9.6-12.0); Monocytes % 3.4 % (1.7-12.7); Neutrophils % 89.6 % (38.7-73.9); Platelet Count 151 T/CUMM (130-400); Red Blood Count 3.29 MC/CUMM (3.8-5.5); Red Cell Distribution Width 12.8 % (9.3-17.3); White Blood Count 10.1 T/CUMM (4-12)
[2020-04-19 05:31] LABS: Calcium 8.1 MG/DL (8.5-10.1); Osmolality,Calculated 279.8 MOS/KG (273-304); Potassium 4.7 MMOL/L (3.5-5.1)
[2020-04-19 05:40] LABS: Bilirubin,Total 0.6 MG/DL (0.2-1.0); Calcium 8.2 MG/DL (8.5-10.1); Osmolality,Calculated 276.9 MOS/KG (273-304); Potassium 4.4 MMOL/L (3.5-5.1); Total Protein 8.2 G/DL (6.4-8.9)
[2020-04-19] MEDS ORDERED: REMDESIVIR 100 MG in SODIUM CHLORIDE 0.9% 100 ML IV SCH (09:00)
[2020-04-19] MEDS: DEXAMETHASONE 4 MG/1 ML VIAL IV SCH (10:32)
[2020-04-19] MEDS: FAMOTIDINE 20 MG TABLET PO SCH ×2 (10:33→20:24)
[2020-04-19] MEDS: CETIRIZINE 10 MG TABLET PO SCH (10:33)
[2020-04-19] MEDS: INSULIN LISPRO 100 UNIT/ML SUBCUT SCH ×4 (10:33→18:24)
[2020-04-19] MEDS: ASCORBIC ACID 500 MG TABLET PO SCH ×2 (10:33→20:23)
[2020-04-19] MEDS: ZINC GLUCONATE 50 MG TABLET PO SCH (10:34)
[2020-04-19] MEDS ORDERED: FUROSEMIDE 40 MG/4 ML VIAL ONE (14:47)
[2020-04-19] MEDS ORDERED: ETOMIDATE 20 MG/10 ML VIAL IV ONE ×2 (14:51→15:07)
[2020-04-19] MEDS ORDERED: MORPHINE 4 MG/1 ML VIAL ONE (14:53)
[2020-04-19] MEDS ORDERED: SUCCINYLCHOLINE 200 MG/10 ML VIAL ONE ×2 (14:53→15:25)
[2020-04-19] MEDS ORDERED: SUCCINYLCHOLINE 200 MG/10 ML VIAL IV ONE ×3 (15:12→15:43)
[2020-04-19] MEDS ORDERED: DIGOXIN 0.5 MG/2 ML AMP ONE (15:20)
[2020-04-19] MEDS ORDERED: MIDAZOLAM 2 MG/2 ML VIAL ONE (15:24)
[2020-04-19] MEDS ORDERED: MIDAZOLAM 2 MG/2 ML VIAL IV ONE (15:27)
[2020-04-19] MEDS ORDERED: DIGOXIN 0.5 MG/2 ML AMP IV ONE (15:27)
[2020-04-19] MEDS: MIDAZOLAM 100 MG in SODIUM CHLORIDE 0.9% 80 ML IV PRN ×2 (15:45→21:49)
[2020-04-19] MEDS: ROCURONIUM 500 MG in SODIUM CHLORIDE 0.9% 500 ML IV PRN (15:45)
[2020-04-19 16:41] LABS: ABG Base Excess -14.6 MMOL/L (-2.5-2.5); ABG HCO3 13.1 MMOL/L (20-26); ABG Oxygen Saturation 90.9 % (95-100); ABG PCO2 65.8 MM HG (35-48); ABG PO2 87.9 MM HG (80-95); ABG TCO2 16.7 MMOL/L (23-27)
[2020-04-19 16:43] LABS: ABG PH 7.019 (7.35-7.45)
[2020-04-19] MEDS ORDERED: SODIUM BICARBONATE 50 MEQ/50 ML VIAL IV ONE ×2 (16:55→22:37)
[2020-04-19 17:33] LABS: Basophils % 0.1 % (0.0-0.8); Hematocrit 26.8 VOL% (42.0-52.0); Hemoglobin 9.5 GM/DL (14.0-18.0); Immature Granulocytes % 1.9 %; Immature Granulocytes Absolute 0.26 #; Lymphocytes # 0.7 10*3/uL (1.4-4.0); Lymphocytes % 4.9 % (21.2-54.2); Mean Corpuscular HGB Conc 35.4 GM/DL (32-36); Mean Corpuscular Volume 82.7 FL (87-102); Mean Platelet Volume 12.4 FL (9.6-12.0); Monocytes % 2.9 % (1.7-12.7); Neutrophils % 90.2 % (38.7-73.9); Platelet Count 167 T/CUMM (130-400); Red Blood Count 3.24 MC/CUMM (3.8-5.5); White Blood Count 13.5 T/CUMM (4-12)
[2020-04-19 17:46] LABS: Albumin 3.1 G/DL (3.4-5.0); Bilirubin,Total 0.4 MG/DL (0.2-1.0); Calcium 8.4 MG/DL (8.5-10.1); Osmolality,Calculated 281.1 MOS/KG (273-304); Potassium 4.4 MMOL/L (3.5-5.1); Total Protein 8.1 G/DL (5.0-7.5)
[2020-04-19 17:53] LABS: Anisocytosis Slight; Hypochromasia Slight; Lymphocytes 6 % (20-55); Segmented Neutrophils 91 % (50-85); Total Cells Counted 100
[2020-04-19 17:54] LABS: Platelet Estimate Adequate; Target Cells Few
[2020-04-19] MEDS ORDERED: ENOXAPARIN 80 MG/0.8 ML SYRINGE SUBCUT SCH (18:30)
[2020-04-19] MEDS: HEPARIN DRIP 25,000 UNITS/500 ML PREMIX IV SCH (20:23)
[2020-04-19] MEDS ORDERED: SODIUM CHLORIDE 0.9% 500 ML IV ONE (21:17)
[2020-04-19 21:42] LABS: ABG Base Excess -7.6 MMOL/L (-2.5-2.5); ABG HCO3 18.1 MMOL/L (20-26); ABG Oxygen Saturation 87.1 % (95-100); ABG PO2 64.8 MM HG (80-95); ABG TCO2 21.1 MMOL/L (23-27); Allen Test Positive; Pt O2 Delivery Device Ventilator
[2020-04-19 21:45] LABS: ABG PH 7.144 (7.35-7.45)
[2020-04-19] MEDS ORDERED: SODIUM CHLORIDE 0.9% 1,000 ML IV SCH (23:00)
[2020-04-20] MEDS: ROCURONIUM 500 MG in SODIUM CHLORIDE 0.9% 500 ML IV PRN ×3 (00:01→16:55)
[2020-04-20] MEDS: ALBUTEROL INHALER 18 GM INH SCH ×7 (00:15→23:25)
[2020-04-20] MEDS: INSULIN LISPRO 100 UNIT/ML SUBCUT SCH ×4 (00:16→17:57)
[2020-04-20 03:01] LABS: Hematocrit 24.5 VOL% (42.0-52.0); Hemoglobin 8.2 GM/DL (14.0-18.0); Immature Granulocytes % 9.6 %; Immature Granulocytes Absolute 0.94 #; Lymphocytes # 0.4 10*3/uL (1.4-4.0); Lymphocytes % 4.1 % (21.2-54.2); Mean Corpuscular HGB Conc 33.5 GM/DL (32-36); Mean Corpuscular Volume 86.6 FL (87-102); Mean Platelet Volume 11.7 FL (9.6-12.0); Monocytes % 3.8 % (1.7-12.7); Neutrophils % 82.5 % (38.7-73.9); Platelet Count 163 T/CUMM (130-400); Red Blood Count 2.83 MC/CUMM (3.8-5.5); White Blood Count 9.8 T/CUMM (4-12)
[2020-04-20 03:23] LABS: Alanine Aminotransferase 17 U/L (16-61); Albumin 2.5 G/DL (3.4-5.0); Alkaline Phosphatase 107 U/L (45-117); Aspartate Amino Transferase 76 U/L (0-37); Bilirubin,Total < 0.39 MG/DL (0.2-1.0); Blood Urea Nitrogen 39 MG/DL (7-18); Calcium 7.6 MG/DL (8.5-10.1); Carbon Dioxide 25 MMOL/L (21-32); Estimated Glom Filtration Rate 51 ML/MIN; Glucose 242 MG/DL (74-106); Osmolality,Calculated 284.2 MOS/KG (273-304); Potassium 3.9 MMOL/L (3.5-5.1); Sodium 134 MMOL/L (136-145); Total Protein 6.9 G/DL (5.0-7.5)
[2020-04-20 03:31] LABS: Band Neutrophils 2 % (0-10); Hypochromasia Slight; Lymphocytes 3 % (20-55); Platelet Estimate Normal; Segmented Neutrophils 92 % (50-85); Total Cells Counted 100
[2020-04-20 04:15] LABS: Ferritin 10232.4 ng/ml (26-388)
[2020-04-20 04:49] LABS: Allen Test Positive; Pt O2 Delivery Device Ventilator
[2020-04-20 04:51] LABS: ABG Base Excess -4.9 MMOL/L (-2.5-2.5); ABG HCO3 23.1 MMOL/L (20-26); ABG Oxygen Saturation 93.5 % (95-100); ABG PCO2 60.1 MM HG (35-48); ABG PO2 77.5 MM HG (80-95)
[2020-04-20 04:53] LABS: ABG PH 7.203 (7.35-7.45)
[2020-04-20 05:11] LABS: Bacteria,Urine Occasional /HPF (Few); Bilirubin,Urine Negative (Negative); Blood, Urine Small mg/dL (Negative); Glucose,Urine (UA) >=500 mg/dL (Negative); Ketones,Urine Negative (Negative); Mucus,Urine Occasional /LPF (Occasional); Nitrite,Urine Negative (Negative); Protein,Urine 100 MG/DL; RBC,Urine 19 /HPF (0-4); Urine Appearance CLOUDY (Clear); Urine Color Yellow (Yellow); Urine Specific Gravity 1.009 (1.001-1.035); Urine Urobilinogen < 2.0 EU/DL (0.2-1.0); WBC,Urine 1 /HPF (0-6)
[2020-04-20] MEDS: MIDAZOLAM 100 MG in SODIUM CHLORIDE 0.9% 80 ML IV PRN ×2 (07:32→16:54)
[2020-04-20] MEDS ORDERED: MAGNESIUM SULF RIDER 2 GM in PREMIX 1 EACH IV ONE (07:46)
[2020-04-20] MEDS: ZINC GLUCONATE 50 MG TABLET PO SCH (08:00)
[2020-04-20] MEDS: CETIRIZINE 10 MG TABLET PO SCH (08:00)
[2020-04-20] MEDS: DEXAMETHASONE 4 MG/1 ML VIAL IV SCH (08:00)
[2020-04-20] MEDS: FAMOTIDINE 20 MG TABLET PO SCH ×2 (08:00→20:05)
[2020-04-20] MEDS: ASCORBIC ACID 500 MG TABLET PO SCH ×2 (08:00→20:05)
[2020-04-20] MEDS: cefTRIAXone 1,000 MG in SYRINGE 1 EACH IV SCH (08:06)
[2020-04-20] MEDS: metroNIDAZOLE INJ 500 MG in PREMIX 1 EACH IV SCH ×2 (08:06→16:54)
[2020-04-20] MEDS: fentaNYL INJ 1,250 MCG in SODIUM CHLORIDE 0.9% 225 ML IV PRN ×2 (08:09→16:54)
[2020-04-20] MEDS: INSULIN GLARGINE 100 UNIT/ML SUBCUT SCH (08:10)
[2020-04-20] MEDS: SODIUM CHLORIDE 0.9% 1,000 ML IV SCH (10:11)
[2020-04-20] MEDS: AZITHROMYCIN INJ 250 MG in SODIUM CHLORIDE 0.9% 250 ML IV SCH (11:26)
[2020-04-20] MEDS: HEPARIN DRIP 25,000 UNITS/500 ML PREMIX IV SCH ×2 (14:03→21:02)
[2020-04-21] MEDS: metroNIDAZOLE INJ 500 MG in PREMIX 1 EACH IV SCH ×3 (00:48→15:35)
[2020-04-21] MEDS: INSULIN LISPRO 100 UNIT/ML SUBCUT SCH ×4 (00:48→17:16)
[2020-04-21] MEDS: MIDAZOLAM 100 MG in SODIUM CHLORIDE 0.9% 80 ML IV PRN (01:58)
[2020-04-21 03:05] LABS: Basophils % 0.1 % (0.0-0.8); Hematocrit 20.5 VOL% (42.0-52.0); Hemoglobin 6.9 GM/DL (14.0-18.0); Immature Granulocytes Absolute 1.06 #; Lymphocytes # 0.6 10*3/uL (1.4-4.0); Lymphocytes % 5.2 % (21.2-54.2); Mean Corpuscular HGB Conc 33.7 GM/DL (32-36); Mean Corpuscular Volume 86.1 FL (87-102); Mean Platelet Volume 11.6 FL (9.6-12.0); Monocytes % 5.6 % (1.7-12.7); Neutrophils % 79.1 % (38.7-73.9); Platelet Count 183 T/CUMM (130-400); Red Blood Count 2.38 MC/CUMM (3.8-5.5); Red Cell Distribution Width 13.8 % (9.3-17.3); White Blood Count 10.6 T/CUMM (4-12)
[2020-04-21 03:24] LABS: Alanine Aminotransferase 14 U/L (16-61); Albumin 2.2 G/DL (3.4-5.0); Alkaline Phosphatase 99 U/L (45-117); Aspartate Amino Transferase 46 U/L (0-37); Bilirubin,Total < 0.39 MG/DL (0.2-1.0); Blood Urea Nitrogen 56 MG/DL (7-18); Calcium 7.2 MG/DL (8.5-10.1); Carbon Dioxide 23 MMOL/L (21-32); Estimated Glom Filtration Rate 31 ML/MIN; Glucose 260 MG/DL (74-106); Osmolality,Calculated 297.8 MOS/KG (273-304); Potassium 4.8 MMOL/L (3.5-5.1); Sodium 137 MMOL/L (136-145); Total Protein 6.3 G/DL (5.0-7.5)
[2020-04-21 03:39] LABS: Ferritin 8671.2 ng/ml (26-388)
[2020-04-21] MEDS: fentaNYL INJ 1,250 MCG in SODIUM CHLORIDE 0.9% 225 ML IV PRN (03:40)
[2020-04-21 03:55] LABS: Band Neutrophils 3 % (0-10); Lymphocytes 5 % (20-55); Segmented Neutrophils 89 % (50-85); Total Cells Counted 100
[2020-04-21 03:56] LABS: Giant Platelets Few; Hypochromasia 1+; Platelet Estimate Normal
[2020-04-21 04:07] LABS: ABG Base Excess -5.4 MMOL/L (-2.5-2.5); ABG HCO3 21.9 MMOL/L (20-26); ABG Oxygen Saturation 98.3 % (95-100); ABG PCO2 53.3 MM HG (35-48); ABG PH 7.231 (7.35-7.45); ABG PO2 167.2 MM HG (80-95); ABG TCO2 23.5 MMOL/L (23-27)
[2020-04-21] MEDS: ALBUTEROL INHALER 18 GM INH SCH ×5 (04:10→21:01)
[2020-04-21] MEDS ORDERED: SODIUM CHLORIDE 0.9% 1,000 ML IV PRN (07:48)
[2020-04-21] MEDS: INSULIN GLARGINE 100 UNIT/ML SUBCUT SCH (08:26)
[2020-04-21] MEDS: cefTRIAXone 1,000 MG in SYRINGE 1 EACH IV SCH (08:26)
[2020-04-21] MEDS: CETIRIZINE 10 MG TABLET PO SCH (08:26)
[2020-04-21] MEDS: FAMOTIDINE 20 MG TABLET PO SCH ×2 (08:26→21:01)
[2020-04-21] MEDS: ZINC GLUCONATE 50 MG TABLET PO SCH (08:26)
[2020-04-21] MEDS: DEXAMETHASONE 4 MG/1 ML VIAL IV SCH (08:26)
[2020-04-21] MEDS: ASCORBIC ACID 500 MG TABLET PO SCH ×2 (08:26→21:01)
[2020-04-21 09:41] LABS: PT Patient Result 11.2 SECS (9.8-11.9)
[2020-04-21 09:43] LABS: Partial Thromboplastin Time 59.5 SECS (23.9-33.8)
[2020-04-21] MEDS: AZITHROMYCIN INJ 250 MG in SODIUM CHLORIDE 0.9% 250 ML IV SCH (09:51)
[2020-04-21] MEDS: HEPARIN DRIP 25,000 UNITS/500 ML PREMIX IV SCH ×2 (10:10→18:10)
[2020-04-21] MEDS: SODIUM CHLORIDE 0.9% 1,000 ML IV SCH (10:11)
[2020-04-21] MEDS: hydrALAZINE 20 MG/1 ML VIAL IV PRN (11:31)
[2020-04-21] MEDS: amLODIPine 5 MG TABLET PO SCH (13:18)
[2020-04-21] MEDS: ACETAMINOPHEN 325 MG TABLET PO PRN (13:53)
[2020-04-21] MEDS ORDERED: FUROSEMIDE 100 MG/10 ML VIAL IV ONE (16:26)
[2020-04-22] MEDS: INSULIN LISPRO 100 UNIT/ML SUBCUT SCH ×4 (00:37→17:47)
[2020-04-22] MEDS: metroNIDAZOLE INJ 500 MG in PREMIX 1 EACH IV SCH ×4 (00:37→23:34)
[2020-04-22] MEDS: ALBUTEROL INHALER 18 GM INH SCH ×7 (00:37→23:34)
[2020-04-22 03:36] LABS: ABG Base Excess -9.2 MMOL/L (-2.5-2.5); ABG HCO3 22.7 MMOL/L (20-26); ABG Oxygen Saturation 97.5 % (95-100); ABG PO2 129.6 MM HG (80-95); ABG TCO2 25.5 MMOL/L (23-27)
[2020-04-22 03:38] LABS: ABG PH 7.015 (7.35-7.45)
[2020-04-22 04:21] LABS: Basophils # 0.1 10*3/uL (0.0-0.2); Basophils % 0.3 % (0.0-0.8); Hematocrit 29.3 VOL% (42.0-52.0); Immature Granulocytes % 4.7 %; Lymphocytes # 1.6 10*3/uL (1.4-4.0); Lymphocytes % 8.3 % (21.2-54.2); Mean Corpuscular HGB Conc 32.4 GM/DL (32-36); Mean Corpuscular Volume 90.4 FL (87-102); Mean Platelet Volume 11.2 FL (9.6-12.0); Monocytes % 5.5 % (1.7-12.7); NRBC # 0.09 10*3/uL; Neutrophils % 81.2 % (38.7-73.9); Platelet Count 286 T/CUMM (130-400); Red Blood Count 3.24 MC/CUMM (3.8-5.5); Red Cell Distribution Width 14.3 % (9.3-17.3); White Blood Count 19.2 T/CUMM (4-12)
[2020-04-22 04:24] LABS: Hemoglobin 9.5 GM/DL (14.0-18.0)
[2020-04-22 04:33] LABS: Allen Test Positive; Pt O2 Delivery Device Ventilator
[2020-04-22 04:34] LABS: ABG Base Excess -8.1 MMOL/L (-2.5-2.5); ABG HCO3 20.6 MMOL/L (20-26); ABG Oxygen Saturation 95.1 % (95-100); ABG PCO2 58.7 MM HG (35-48); ABG PO2 83.8 MM HG (80-95); ABG TCO2 22.4 MMOL/L (23-27)
[2020-04-22 04:35] LABS: ABG PH 7.163 (7.35-7.45)
[2020-04-22 04:37] LABS: Alanine Aminotransferase 23 U/L (16-61); Albumin 2.3 G/DL (3.4-5.0); Alkaline Phosphatase 179 U/L (45-117); Aspartate Amino Transferase 45 U/L (0-37); Bilirubin,Total < 0.39 MG/DL (0.2-1.0); Blood Urea Nitrogen 76 MG/DL (7-18); Calcium 7.5 MG/DL (8.5-10.1); Carbon Dioxide 22 MMOL/L (21-32); Estimated Glom Filtration Rate 20 ML/MIN; Glucose 340 MG/DL (74-106); Osmolality,Calculated 299.5 MOS/KG (273-304); Potassium 5.2 MMOL/L (3.5-5.1); Sodium 132 MMOL/L (136-145); Total Protein 7.2 G/DL (5.0-7.5)
[2020-04-22 04:42] LABS: Hypochromasia Slight; Lymphocytes 3 % (20-55); Platelet Estimate Normal; Segmented Neutrophils 92 % (50-85); Total Cells Counted 100
[2020-04-22] MEDS ORDERED: SODIUM BICARBONATE 50 MEQ/50 ML VIAL IV ONE (04:52)
[2020-04-22] MEDS: hydrALAZINE 20 MG/1 ML VIAL IV PRN ×3 (06:23→17:35)
[2020-04-22] MEDS: AZITHROMYCIN INJ 250 MG in SODIUM CHLORIDE 0.9% 250 ML IV SCH (07:39)
[2020-04-22] MEDS: cefTRIAXone 1,000 MG in SYRINGE 1 EACH IV SCH (07:40)
[2020-04-22] MEDS: ZINC GLUCONATE 50 MG TABLET PO SCH (08:22)
[2020-04-22] MEDS: amLODIPine 5 MG TABLET PO SCH (08:23)
[2020-04-22] MEDS: FAMOTIDINE 20 MG TABLET PO SCH ×2 (08:23→21:27)
[2020-04-22] MEDS: CETIRIZINE 10 MG TABLET PO SCH (08:23)
[2020-04-22] MEDS: DEXAMETHASONE 4 MG/1 ML VIAL IV SCH (08:23)
[2020-04-22] MEDS: ASCORBIC ACID 500 MG TABLET PO SCH ×2 (08:23→21:27)
[2020-04-22] MEDS: METOPROLOL TARTRATE 25 MG TABLET PO SCH ×2 (08:28→21:27)
[2020-04-22] MEDS: INSULIN GLARGINE 100 UNIT/ML SUBCUT SCH (08:28)
[2020-04-22] MEDS: FERROUS SULFATE 325 MG TABLET PO SCH (08:28)
[2020-04-22] MEDS: SIMVASTATIN 20 MG TABLET PO SCH (08:28)
[2020-04-22] MEDS: FOLIC ACID 1 MG TABLET PO SCH (08:28)
[2020-04-22] MEDS: HEPARIN DRIP 25,000 UNITS/500 ML PREMIX IV SCH ×2 (10:42→18:56)
[2020-04-22] MEDS: SODIUM CHLORIDE 0.9% 1,000 ML IV SCH (11:07)
[2020-04-22] MEDS ORDERED: carvediloL 12.5 MG TABLET PO ONE (17:21)
[2020-04-22] MEDS ORDERED: METOPROLOL TARTRATE 25 MG TABLET PO ONE (17:27)
[2020-04-22] MEDS ORDERED: ENALAPRIL 2.5 MG/2 ML VIAL IV PRN (17:32)
[2020-04-22] MEDS: cloNIDine 0.2 MG/24 HR PATCH TRANSDERM SCH (20:30)
[2020-04-23] MEDS: INSULIN LISPRO 100 UNIT/ML SUBCUT SCH ×4 (00:30→18:08)
[2020-04-23] MEDS: ALBUTEROL INHALER 18 GM INH SCH ×6 (03:21→23:57)
[2020-04-23 03:28] LABS: Allen Test Positive; Pt O2 Delivery Device Ventilator
[2020-04-23 03:29] LABS: ABG Base Excess -6.7 MMOL/L (-2.5-2.5); ABG Oxygen Saturation 98.7 % (95-100); ABG PCO2 45.1 MM HG (35-48); ABG PH 7.265 (7.35-7.45); ABG PO2 201.7 MM HG (80-95); ABG TCO2 21.4 MMOL/L (23-27)
[2020-04-23 04:13] LABS: Basophils % 0.1 % (0.0-0.8); Hematocrit 26.8 VOL% (42.0-52.0); Hemoglobin 9.2 GM/DL (14.0-18.0); Immature Granulocytes % 7.1 %; Immature Granulocytes Absolute 1.53 #; Lymphocytes # 1.6 10*3/uL (1.4-4.0); Lymphocytes % 7.5 % (21.2-54.2); Mean Corpuscular HGB Conc 34.3 GM/DL (32-36); Mean Corpuscular Volume 86.5 FL (87-102); NRBC # 0.09 10*3/uL; Neutrophils % 78.3 % (38.7-73.9); Platelet Count 269 T/CUMM (130-400); Red Cell Distribution Width 14.2 % (9.3-17.3); White Blood Count 21.6 T/CUMM (4-12)
[2020-04-23] MEDS: hydrALAZINE 20 MG/1 ML VIAL IV PRN (04:15)
[2020-04-23 04:41] LABS: Alanine Aminotransferase 15 U/L (16-61); Albumin 2.3 G/DL (3.4-5.0); Alkaline Phosphatase 172 U/L (45-117); Aspartate Amino Transferase 33 U/L (0-37); Bilirubin,Total < 0.39 MG/DL (0.2-1.0); Blood Urea Nitrogen 102 MG/DL (7-18); Calcium 7.5 MG/DL (8.5-10.1); Carbon Dioxide 22 MMOL/L (21-32); Estimated Glom Filtration Rate 17 ML/MIN; Glucose 227 MG/DL (74-106); Hypochromasia 1+; Lymphocytes 4 % (20-55); Osmolality,Calculated 313.7 MOS/KG (273-304); Potassium 4.8 MMOL/L (3.5-5.1); Segmented Neutrophils 91 % (50-85); Sodium 138 MMOL/L (136-145); Total Cells Counted 100; Total Protein 6.9 G/DL (5.0-7.5)
[2020-04-23 04:42] LABS: Microcytosis 1+; Platelet Estimate Normal
[2020-04-23 05:57] LABS: Hepatitis B Core IgM Quant < 0.05 Index; Hepatitis B Surface Ag Quant < 0.10 Index; Hepatitis B Surface Ag Result Non-Reactive (NonReactive); Hepatitis C Virus Ab Quant 0.05 Index; Hepatitis C Virus Ab Result Non-Reactive (NonReactive)
[2020-04-23] MEDS: HEPARIN DRIP 25,000 UNITS/500 ML PREMIX IV SCH ×2 (07:43→19:43)
[2020-04-23] MEDS ORDERED: carvediloL 25 MG TABLET PO SCH (09:00)
[2020-04-23] MEDS: FERROUS SULFATE 325 MG TABLET PO SCH (09:50)
[2020-04-23] MEDS: METOPROLOL TARTRATE 25 MG TABLET PO SCH ×2 (09:50→20:47)
[2020-04-23] MEDS: cefTRIAXone 1,000 MG in SYRINGE 1 EACH IV SCH (09:50)
[2020-04-23] MEDS: INSULIN GLARGINE 100 UNIT/ML SUBCUT SCH ×2 (09:50→11:40)
[2020-04-23] MEDS: amLODIPine 5 MG TABLET PO SCH (09:50)
[2020-04-23] MEDS: CETIRIZINE 10 MG TABLET PO SCH (09:50)
[2020-04-23] MEDS: ASCORBIC ACID 500 MG TABLET PO SCH ×2 (09:50→20:29)
[2020-04-23] MEDS: FOLIC ACID 1 MG TABLET PO SCH (09:50)
[2020-04-23] MEDS: FAMOTIDINE 20 MG TABLET PO SCH ×2 (09:50→20:29)
[2020-04-23] MEDS: SIMVASTATIN 20 MG TABLET PO SCH (09:50)
[2020-04-23] MEDS: ZINC GLUCONATE 50 MG TABLET PO SCH (09:50)
[2020-04-23] MEDS: DEXAMETHASONE 4 MG/1 ML VIAL IV SCH (09:50)
[2020-04-23] MEDS: metroNIDAZOLE INJ 500 MG in PREMIX 1 EACH IV SCH ×2 (11:34→18:07)
[2020-04-23] MEDS ORDERED: HEPARIN 5,000 UNIT/1 ML VIAL IV ONE (12:27)
[2020-04-23] MEDS: AZITHROMYCIN INJ 250 MG in SODIUM CHLORIDE 0.9% 250 ML IV SCH (13:23)
[2020-04-23] MEDS: SODIUM CHLORIDE 0.9% 1,000 ML IV SCH (13:24)
[2020-04-23] MEDS ORDERED: HEPARIN 10,000 UNIT/10 ML VIAL IV SCH (18:45)
[2020-04-24] MEDS: metroNIDAZOLE INJ 500 MG in PREMIX 1 EACH IV SCH ×3 (00:06→15:46)
[2020-04-24] MEDS: INSULIN LISPRO 100 UNIT/ML SUBCUT SCH ×4 (00:06→18:29)
[2020-04-24] MEDS: ALBUTEROL INHALER 18 GM INH SCH ×5 (03:49→19:43)
[2020-04-24 04:19] LABS: Basophils % 0.1 % (0.0-0.8); Hemoglobin 7.9 GM/DL (14.0-18.0); Immature Granulocytes % 3.8 %; Immature Granulocytes Absolute 0.75 #; Lymphocytes # 0.8 10*3/uL (1.4-4.0); Lymphocytes % 3.9 % (21.2-54.2); Mean Corpuscular HGB Conc 34.3 GM/DL (32-36); Mean Corpuscular Volume 86.1 FL (87-102); Mean Platelet Volume 11.3 FL (9.6-12.0); Monocytes % 6.3 % (1.7-12.7); NRBC # 0.12 10*3/uL; Neutrophils % 85.9 % (38.7-73.9); Platelet Count 216 T/CUMM (130-400); Red Blood Count 2.67 MC/CUMM (3.8-5.5); Red Cell Distribution Width 14.3 % (9.3-17.3)
[2020-04-24 04:32] LABS: Allen Test Positive; Pt O2 Delivery Device Ventilator
[2020-04-24 04:34] LABS: ABG Base Excess -4.8 MMOL/L (-2.5-2.5); ABG HCO3 21.4 MMOL/L (20-26); ABG Oxygen Saturation 87.5 % (95-100); ABG PH 7.296 (7.35-7.45); ABG PO2 59.5 MM HG (80-95); ABG TCO2 22.8 MMOL/L (23-27)
[2020-04-24 04:38] LABS: Hypochromasia 2+; Lymphocytes 2 % (20-55); Microcytosis 1+; Nucleated Red Blood Cells 2 (0-5); Platelet Estimate Adequate; Segmented Neutrophils 92 % (50-85); Total Cells Counted 100
[2020-04-24 04:44] LABS: Albumin 1.9 G/DL (3.4-5.0); Bilirubin,Total 1.2 MG/DL (0.2-1.0); Calcium 7.6 MG/DL (8.5-10.1); Potassium 4.8 MMOL/L (3.5-5.1); Total Protein 6.2 G/DL (5.0-7.5)
[2020-04-24] MEDS: HEPARIN DRIP 25,000 UNITS/500 ML PREMIX IV SCH ×2 (05:12→18:31)
[2020-04-24 05:31] LABS: Ferritin 4082.9 ng/ml (26-388)
[2020-04-24 07:30] LABS: Total Protein (Chem) 6.9 G/DL (6.4-8.3)
[2020-04-24] MEDS: cefTRIAXone 1,000 MG in SYRINGE 1 EACH IV SCH (08:03)
[2020-04-24] MEDS: DEXAMETHASONE 4 MG/1 ML VIAL IV SCH (08:06)
[2020-04-24] MEDS: ZINC GLUCONATE 50 MG TABLET PO SCH (08:09)
[2020-04-24] MEDS: ASCORBIC ACID 500 MG TABLET PO SCH ×2 (08:09→20:13)
[2020-04-24] MEDS: FERROUS SULFATE 325 MG TABLET PO SCH (08:09)
[2020-04-24] MEDS: FOLIC ACID 1 MG TABLET PO SCH (08:10)
[2020-04-24] MEDS: FAMOTIDINE 20 MG TABLET PO SCH ×2 (08:10→20:13)
[2020-04-24] MEDS: CETIRIZINE 10 MG TABLET PO SCH (08:10)
[2020-04-24] MEDS: SIMVASTATIN 20 MG TABLET PO SCH (08:10)
[2020-04-24] MEDS: METOPROLOL TARTRATE 25 MG TABLET PO SCH ×2 (08:10→20:13)
[2020-04-24] MEDS: amLODIPine 5 MG TABLET PO SCH (08:11)
[2020-04-24] MEDS ORDERED: MORPHINE 4 MG/1 ML VIAL IV ONE (08:13)
[2020-04-24] MEDS: INSULIN GLARGINE 100 UNIT/ML SUBCUT SCH (08:26)
[2020-04-24] MEDS ORDERED: SODIUM CHLORIDE 0.9% 1,000 ML IV PRN (09:53)
[2020-04-24] MEDS: fentaNYL INJ 1,250 MCG in SODIUM CHLORIDE 0.9% 225 ML IV PRN ×3 (10:05→22:36)
[2020-04-24 10:06] LABS: Albumin (SPE) 3.8 G/DL (3.2-5.3); Albumin (SPE) Rel % 54.4 %; Alpha 1 (SPE) 0.4 G/DL (0.1-0.4); Alpha 1 (SPE) Rel % 6.4 %; Alpha 2 (SPE) Rel % 14.7 %; Beta (SPE) Rel % 14.2 %; Gamma (SPE) 0.7 G/DL (0.7-1.7); Gamma (SPE) Rel % 10.3 %
[2020-04-24] MEDS: methylPREDNISolone SOD SUC 40 MG/1 ML VIAL IV SCH ×2 (10:55→18:26)
[2020-04-24] MEDS: ERGOCALCIFEROL 50,000 UNIT CAPSULE PO SCH (10:59)
[2020-04-25] MEDS: HEPARIN DRIP 25,000 UNITS/500 ML PREMIX IV SCH ×2 (00:27→21:00)
[2020-04-25] MEDS: INSULIN LISPRO 100 UNIT/ML SUBCUT SCH ×4 (00:27→17:40)
[2020-04-25] MEDS: ALBUTEROL INHALER 18 GM INH SCH ×6 (00:27→19:47)
[2020-04-25] MEDS: metroNIDAZOLE INJ 500 MG in PREMIX 1 EACH IV SCH ×2 (00:27→08:43)
[2020-04-25] MEDS: methylPREDNISolone SOD SUC 40 MG/1 ML VIAL IV SCH ×3 (01:16→17:40)
[2020-04-25] MEDS: fentaNYL INJ 1,250 MCG in SODIUM CHLORIDE 0.9% 225 ML IV PRN (02:35)
[2020-04-25] MEDS: fentaNYL INJ 2,500 MCG in SODIUM CHLORIDE 0.9% 450 ML IV PRN ×2 (03:06→09:54)
[2020-04-25 04:21] LABS: ABG Base Excess -5.2 MMOL/L (-2.5-2.5); ABG HCO3 21.9 MMOL/L (20-26); ABG Oxygen Saturation 91.6 % (95-100); ABG PCO2 50.8 MM HG (35-48); ABG PH 7.252 (7.35-7.45); ABG PO2 70.6 MM HG (80-95); ABG TCO2 23.4 MMOL/L (23-27); Allen Test Positive; Pt O2 Delivery Device Ventilator
[2020-04-25 05:37] LABS: Basophils # 0.1 10*3/uL (0.0-0.2); Basophils % 0.3 % (0.0-0.8); Hematocrit 23.3 VOL% (42.0-52.0); Hemoglobin 8.1 GM/DL (14.0-18.0); Immature Granulocytes % 3.3 %; Immature Granulocytes Absolute 0.76 #; Lymphocytes # 0.8 10*3/uL (1.4-4.0); Lymphocytes % 3.4 % (21.2-54.2); Mean Corpuscular HGB Conc 34.8 GM/DL (32-36); Mean Corpuscular Volume 86.3 FL (87-102); Mean Platelet Volume 11.1 FL (9.6-12.0); Monocytes % 5.4 % (1.7-12.7); NRBC # 0.09 10*3/uL; Neutrophils % 87.6 % (38.7-73.9); Platelet Count 195 T/CUMM (130-400); Red Cell Distribution Width 14.5 % (9.3-17.3); White Blood Count 23.2 T/CUMM (4-12)
[2020-04-25 05:52] LABS: Calcium 7.8 MG/DL (8.5-10.1); Osmolality,Calculated 293.7 MOS/KG (273-304); Potassium 5.4 MMOL/L (3.5-5.1)
[2020-04-25 05:56] LABS: Hypochromasia 1+; Lymphocytes 2 % (20-55); Microcytosis 1+; Nucleated Red Blood Cells 2 (0-5); Platelet Estimate Adequate; Segmented Neutrophils 90 % (50-85); Total Cells Counted 100
[2020-04-25] MEDS: FOLIC ACID 1 MG TABLET PO SCH (08:08)
[2020-04-25] MEDS: ASCORBIC ACID 500 MG TABLET PO SCH ×2 (08:08→20:58)
[2020-04-25] MEDS: INSULIN GLARGINE 100 UNIT/ML SUBCUT SCH (08:08)
[2020-04-25] MEDS: ZINC GLUCONATE 50 MG TABLET PO SCH (08:08)
[2020-04-25] MEDS: FERROUS SULFATE 325 MG TABLET PO SCH (08:08)
[2020-04-25] MEDS: SIMVASTATIN 20 MG TABLET PO SCH (08:08)
[2020-04-25] MEDS: amLODIPine 5 MG TABLET PO SCH (08:08)
[2020-04-25] MEDS: FAMOTIDINE 20 MG TABLET PO SCH ×2 (08:08→20:58)
[2020-04-25] MEDS: METOPROLOL TARTRATE 25 MG TABLET PO SCH ×2 (08:08→20:58)
[2020-04-25] MEDS: CETIRIZINE 10 MG TABLET PO SCH (08:08)
[2020-04-25] MEDS: cefTRIAXone 1,000 MG in SYRINGE 1 EACH IV SCH (08:43)
[2020-04-25] MEDS ORDERED: hydrALAZINE 25 MG TABLET PO PRN (10:21)
[2020-04-25 13:24] LABS: ABG Base Excess -5.1 MMOL/L (-2.5-2.5); ABG HCO3 20.1 MMOL/L (20-26); ABG Oxygen Saturation 94.8 % (95-100); ABG PH 7.319 (7.35-7.45); ABG PO2 78.1 MM HG (80-95); ABG TCO2 19.3 MMOL/L (23-27)
[2020-04-25] MEDS: MEROPENEM 500 MG in SODIUM CHLORIDE 0.9% 100 ML IV SCH (14:09)
[2020-04-25] MEDS: fentaNYL INJ 2,500 MCG in SODIUM CHLORIDE 0.9% 75 ML IV PRN (17:45)
[2020-04-26] MEDS: ALBUTEROL INHALER 18 GM INH SCH ×6 (00:06→19:55)
[2020-04-26] MEDS: INSULIN LISPRO 100 UNIT/ML SUBCUT SCH ×4 (00:06→17:51)
[2020-04-26] MEDS: methylPREDNISolone SOD SUC 40 MG/1 ML VIAL IV SCH ×3 (03:02→16:02)
[2020-04-26 03:40] LABS: ABG Base Excess -2.6 MMOL/L (-2.5-2.5); ABG HCO3 22.6 MMOL/L (20-26); ABG Oxygen Saturation 95.9 % (95-100); ABG PCO2 40.6 MM HG (35-48); ABG PH 7.363 (7.35-7.45); ABG PO2 86.1 MM HG (80-95); ABG TCO2 23.8 MMOL/L (23-27)
[2020-04-26 03:53] LABS: Basophils # 0.1 10*3/uL (0.0-0.2); Basophils % 0.2 % (0.0-0.8); Hematocrit 25.1 VOL% (42.0-52.0); Hemoglobin 8.7 GM/DL (14.0-18.0); Immature Granulocytes % 2.3 %; Immature Granulocytes Absolute 0.57 #; Lymphocytes # 0.5 10*3/uL (1.4-4.0); Lymphocytes % 2.2 % (21.2-54.2); Mean Corpuscular HGB Conc 34.7 GM/DL (32-36); Mean Corpuscular Volume 83.9 FL (87-102); Mean Platelet Volume 11.4 FL (9.6-12.0); Monocytes % 5.8 % (1.7-12.7); NRBC # 0.09 10*3/uL; Neutrophils % 89.5 % (38.7-73.9); Platelet Count 206 T/CUMM (130-400); Red Blood Count 2.99 MC/CUMM (3.8-5.5); Red Cell Distribution Width 14.2 % (9.3-17.3); White Blood Count 24.6 T/CUMM (4-12)
[2020-04-26 04:16] LABS: Band Neutrophils 2 % (0-10); Hypochromasia 1+; Lymphocytes 3 % (20-55); Microcytosis 1+; Platelet Estimate Adequate; Segmented Neutrophils 85 % (50-85); Total Cells Counted 100
[2020-04-26 04:27] LABS: Albumin 1.8 G/DL (3.4-5.0); Bilirubin,Total 0.4 MG/DL (0.2-1.0); Calcium 7.7 MG/DL (8.5-10.1); Ferritin 5301.2 ng/ml (26-388); Osmolality,Calculated 294.4 MOS/KG (273-304); Potassium 4.7 MMOL/L (3.5-5.1); Total Protein 7.2 G/DL (5.0-7.5)
[2020-04-26] MEDS: INSULIN GLARGINE 100 UNIT/ML SUBCUT SCH (08:12)
[2020-04-26] MEDS: CETIRIZINE 10 MG TABLET PO SCH (08:13)
[2020-04-26] MEDS: amLODIPine 5 MG TABLET PO SCH (08:13)
[2020-04-26] MEDS: METOPROLOL TARTRATE 25 MG TABLET PO SCH ×2 (08:13→20:47)
[2020-04-26] MEDS: ZINC GLUCONATE 50 MG TABLET PO SCH (08:13)
[2020-04-26] MEDS: FERROUS SULFATE 325 MG TABLET PO SCH (08:13)
[2020-04-26] MEDS: ASCORBIC ACID 500 MG TABLET PO SCH ×2 (08:13→20:47)
[2020-04-26] MEDS: FOLIC ACID 1 MG TABLET PO SCH (08:13)
[2020-04-26] MEDS: FAMOTIDINE 20 MG TABLET PO SCH ×2 (08:13→20:47)
[2020-04-26] MEDS: MENTHOL/ZINC OXIDE OINT 71 GM JAR TOP SCH ×2 (10:37→20:47)
[2020-04-26] MEDS: fentaNYL INJ 2,500 MCG in SODIUM CHLORIDE 0.9% 75 ML IV PRN (10:55)
[2020-04-26] MEDS: MEROPENEM 500 MG in SODIUM CHLORIDE 0.9% 100 ML IV SCH (14:22)
[2020-04-26] MEDS: HEPARIN DRIP 25,000 UNITS/500 ML PREMIX IV SCH (22:13)
[2020-04-27] MEDS: ALBUTEROL INHALER 18 GM INH SCH ×7 (00:17→23:09)
[2020-04-27] MEDS: INSULIN LISPRO 100 UNIT/ML SUBCUT SCH ×5 (00:17→23:36)
[2020-04-27 03:28] LABS: ABG Base Excess -6.6 MMOL/L (-2.5-2.5); ABG Oxygen Saturation 99.5 % (95-100); ABG PCO2 39.3 MM HG (35-48); ABG PH 7.301 (7.35-7.45); ABG TCO2 18.1 MMOL/L (23-27)
[2020-04-27 03:40] LABS: Basophils % 0.2 % (0.0-0.8); Hematocrit 23.9 VOL% (42.0-52.0); Hemoglobin 8.2 GM/DL (14.0-18.0); Immature Granulocytes % 3.1 %; Immature Granulocytes Absolute 0.77 #; Lymphocytes # 0.5 10*3/uL (1.4-4.0); Mean Corpuscular HGB Conc 34.3 GM/DL (32-36); Mean Corpuscular Volume 84.2 FL (87-102); Mean Platelet Volume 11.6 FL (9.6-12.0); Monocytes % 6.6 % (1.7-12.7); NRBC # 0.05 10*3/uL; Neutrophils % 88.1 % (38.7-73.9); Platelet Count 191 T/CUMM (130-400); Red Blood Count 2.84 MC/CUMM (3.8-5.5); White Blood Count 25.1 T/CUMM (4-12)
[2020-04-27 03:44] LABS: Calcium 7.9 MG/DL (8.5-10.1); Osmolality,Calculated 308.5 MOS/KG (273-304); Potassium 5.3 MMOL/L (3.5-5.1)
[2020-04-27] MEDS: methylPREDNISolone SOD SUC 40 MG/1 ML VIAL IV SCH ×2 (04:16→15:30)
[2020-04-27] MEDS: hydrALAZINE 20 MG/1 ML VIAL IV PRN ×2 (06:13→21:15)
[2020-04-27 07:09] LABS: Eosinophils 1 % (0-10); Lymphocytes 3 % (20-55); Segmented Neutrophils 91 % (50-85); Total Cells Counted 100
[2020-04-27 07:10] LABS: Anisocytosis 1+; Macrocytosis 1+; Platelet Estimate Normal
[2020-04-27] MEDS: fentaNYL INJ 2,500 MCG in SODIUM CHLORIDE 0.9% 75 ML IV PRN ×2 (07:10→21:09)
[2020-04-27] MEDS: FOLIC ACID 1 MG TABLET PO SCH (08:58)
[2020-04-27] MEDS: METOPROLOL TARTRATE 25 MG TABLET PO SCH ×2 (08:58→20:19)
[2020-04-27] MEDS: ASCORBIC ACID 500 MG TABLET PO SCH ×2 (08:58→20:19)
[2020-04-27] MEDS: ZINC GLUCONATE 50 MG TABLET PO SCH (08:59)
[2020-04-27] MEDS: amLODIPine 5 MG TABLET PO SCH (08:59)
[2020-04-27] MEDS: MENTHOL/ZINC OXIDE OINT 71 GM JAR TOP SCH ×2 (08:59→20:19)
[2020-04-27] MEDS: FAMOTIDINE 20 MG TABLET PO SCH ×2 (08:59→20:19)
[2020-04-27] MEDS: CETIRIZINE 10 MG TABLET PO SCH (08:59)
[2020-04-27] MEDS: INSULIN GLARGINE 100 UNIT/ML SUBCUT SCH (09:11)
[2020-04-27] MEDS: hydrALAZINE 25 MG TABLET PO SCH ×3 (09:11→20:19)
[2020-04-27] MEDS: FERROUS SULFATE 325 MG TABLET PO SCH (09:11)
[2020-04-27] MEDS: MEROPENEM 500 MG in SODIUM CHLORIDE 0.9% 100 ML IV SCH (14:03)
[2020-04-27] MEDS: HEPARIN DRIP 25,000 UNITS/500 ML PREMIX IV SCH ×2 (18:02→23:14)
[2020-04-28] MEDS: ALBUTEROL INHALER 18 GM INH SCH ×5 (03:01→19:36)
[2020-04-28 04:10] LABS: ABG Base Excess -2.9 MMOL/L (-2.5-2.5); ABG HCO3 22.2 MMOL/L (20-26); ABG Oxygen Saturation 95.8 % (95-100); ABG PCO2 39.5 MM HG (35-48); ABG PH 7.367 (7.35-7.45); ABG TCO2 23.4 MMOL/L (23-27); Allen Test Positive; Pt O2 Delivery Device Ventilator
[2020-04-28] MEDS: methylPREDNISolone SOD SUC 40 MG/1 ML VIAL IV SCH ×2 (04:11→15:29)
[2020-04-28] MEDS: hydrALAZINE 25 MG TABLET PO SCH ×4 (04:11→20:25)
[2020-04-28 05:20] LABS: Basophils % 0.1 % (0.0-0.8); Eosinophils % 0.2 % (0.00-10.9); Hematocrit 21.9 VOL% (42.0-52.0); Hemoglobin 7.7 GM/DL (14.0-18.0); Immature Granulocytes % 4.4 %; Immature Granulocytes Absolute 0.86 #; Lymphocytes # 0.7 10*3/uL (1.4-4.0); Lymphocytes % 3.4 % (21.2-54.2); Mean Corpuscular HGB Conc 35.2 GM/DL (32-36); Mean Corpuscular Volume 83.9 FL (87-102); Mean Platelet Volume 12.1 FL (9.6-12.0); Monocytes % 7.3 % (1.7-12.7); NRBC # 0.03 10*3/uL; Neutrophils % 84.6 % (38.7-73.9); Platelet Count 167 T/CUMM (130-400); Red Blood Count 2.61 MC/CUMM (3.8-5.5); Red Cell Distribution Width 13.7 % (9.3-17.3); White Blood Count 19.4 T/CUMM (4-12)
[2020-04-28 06:01] LABS: Calcium 8.1 MG/DL (8.5-10.1); Ferritin 4200.2 ng/ml (26-388); Osmolality,Calculated 294.7 MOS/KG (273-304); Potassium 4.4 MMOL/L (3.5-5.1)
[2020-04-28] MEDS: INSULIN LISPRO 100 UNIT/ML SUBCUT SCH ×3 (06:14→17:44)
[2020-04-28 06:17] LABS: Anisocytosis 1+; Band Neutrophils 4 % (0-10); Lymphocytes 2 % (20-55); Macrocytosis Slight; Platelet Estimate Normal; Polychromasia Slight; Segmented Neutrophils 85 % (50-85); Tear Drop Cells Few; Total Cells Counted 100
[2020-04-28] MEDS: fentaNYL INJ 2,500 MCG in SODIUM CHLORIDE 0.9% 75 ML IV PRN ×2 (06:49→17:04)
[2020-04-28] MEDS: ZINC GLUCONATE 50 MG TABLET PO SCH (08:31)
[2020-04-28] MEDS: CETIRIZINE 10 MG TABLET PO SCH (08:31)
[2020-04-28] MEDS: INSULIN GLARGINE 100 UNIT/ML SUBCUT SCH (08:31)
[2020-04-28] MEDS: METOPROLOL TARTRATE 25 MG TABLET PO SCH ×2 (08:32→20:25)
[2020-04-28] MEDS: ASCORBIC ACID 500 MG TABLET PO SCH ×2 (08:32→20:25)
[2020-04-28] MEDS: FERROUS SULFATE 325 MG TABLET PO SCH (08:32)
[2020-04-28] MEDS: MENTHOL/ZINC OXIDE OINT 71 GM JAR TOP SCH ×2 (08:32→20:25)
[2020-04-28] MEDS: FOLIC ACID 1 MG TABLET PO SCH (08:32)
[2020-04-28] MEDS: FAMOTIDINE 20 MG TABLET PO SCH ×2 (08:32→20:25)
[2020-04-28] MEDS: amLODIPine 5 MG TABLET PO SCH (08:32)
[2020-04-28] MEDS: MEROPENEM 500 MG in SODIUM CHLORIDE 0.9% 100 ML IV SCH (14:32)
[2020-04-28] MEDS: hydrALAZINE 20 MG/1 ML VIAL IV PRN (17:00)
[2020-04-28] MEDS: HEPARIN DRIP 25,000 UNITS/500 ML PREMIX IV SCH (17:45)
[2020-04-29] MEDS: INSULIN LISPRO 100 UNIT/ML SUBCUT SCH ×4 (00:10→18:14)
[2020-04-29] MEDS: ALBUTEROL INHALER 18 GM INH SCH ×7 (00:10→23:16)
[2020-04-29] MEDS: HEPARIN DRIP 25,000 UNITS/500 ML PREMIX IV SCH (00:16)
[2020-04-29] MEDS: hydrALAZINE 25 MG TABLET PO SCH ×4 (04:25→21:01)
[2020-04-29] MEDS: methylPREDNISolone SOD SUC 40 MG/1 ML VIAL IV SCH ×2 (04:25→16:45)
[2020-04-29 04:31] LABS: ABG Base Excess -5.4 MMOL/L (-2.5-2.5); ABG HCO3 19.7 MMOL/L (20-26); ABG Oxygen Saturation 97.4 % (95-100); ABG PCO2 36.9 MM HG (35-48); ABG PH 7.346 (7.35-7.45); ABG PO2 106.9 MM HG (80-95); ABG TCO2 20.9 MMOL/L (23-27); Allen Test Positive; Pt O2 Delivery Device Ventilator
[2020-04-29 04:51] LABS: Basophils % 0.1 % (0.0-0.8); Hemoglobin 7.5 GM/DL (14.0-18.0)
[2020-04-29 05:00] LABS: Calcium 8.3 MG/DL (8.5-10.1); Osmolality,Calculated 297.9 MOS/KG (273-304)
[2020-04-29 05:09] LABS: Eosinophils # 0.1 10*3/uL (0.0-0.87); Eosinophils % 0.6 % (0.00-10.9); Hematocrit 21.4 VOL% (42.0-52.0); Immature Granulocytes % 3.9 %; Immature Granulocytes Absolute 0.81 #; Lymphocytes # 0.6 10*3/uL (1.4-4.0); Lymphocytes % 2.7 % (21.2-54.2); Mean Corpuscular Volume 82.3 FL (87-102); Mean Platelet Volume 12.6 FL (9.6-12.0); Monocytes % 8.9 % (1.7-12.7); Neutrophils % 83.8 % (38.7-73.9); Platelet Count 164 T/CUMM (130-400); Red Cell Distribution Width 13.7 % (9.3-17.3); White Blood Count 20.8 T/CUMM (4-12)
[2020-04-29] MEDS: fentaNYL INJ 2,500 MCG in SODIUM CHLORIDE 0.9% 75 ML IV PRN ×2 (05:15→15:15)
[2020-04-29 07:34] LABS: Anisocytosis 1+; Eosinophils 1 % (0-10); Lymphocytes 3 % (20-55); Macrocytosis 1+; Metamyelocytes 3 %; Platelet Estimate Normal; Segmented Neutrophils 84 % (50-85); Total Cells Counted 100
[2020-04-29] MEDS: METOPROLOL TARTRATE 25 MG TABLET PO SCH ×2 (08:06→21:01)
[2020-04-29] MEDS: amLODIPine 10 MG TABLET PO SCH (08:06)
[2020-04-29] MEDS: ZINC GLUCONATE 50 MG TABLET PO SCH (08:07)
[2020-04-29] MEDS: FAMOTIDINE 20 MG TABLET PO SCH ×2 (08:07→21:01)
[2020-04-29] MEDS: ASCORBIC ACID 500 MG TABLET PO SCH ×2 (08:07→21:01)
[2020-04-29] MEDS: FERROUS SULFATE 325 MG TABLET PO SCH (08:08)
[2020-04-29] MEDS: INSULIN GLARGINE 100 UNIT/ML SUBCUT SCH (08:09)
[2020-04-29] MEDS: MENTHOL/ZINC OXIDE OINT 71 GM JAR TOP SCH ×2 (09:04→21:01)
[2020-04-29] MEDS: FOLIC ACID 1 MG TABLET PO SCH (09:05)
[2020-04-29] MEDS: cloNIDine 0.2 MG/24 HR PATCH TRANSDERM SCH (09:05)
[2020-04-29] MEDS: CETIRIZINE 10 MG TABLET PO SCH (09:05)
[2020-04-29] MEDS: CISATRACURIUM 200 MG in SODIUM CHLORIDE 0.9% 180 ML IV PRN ×4 (10:17→22:21)
[2020-04-29 11:45] LABS: ABG Base Excess -7.9 MMOL/L (-2.5-2.5); ABG HCO3 17.9 MMOL/L (20-26); ABG Oxygen Saturation 88.5 % (95-100); ABG TCO2 19.1 MMOL/L (23-27); Allen Test Positive; Pt O2 Delivery Device Ventilator
[2020-04-29 11:47] LABS: ABG PH 7.202 (7.35-7.45)
[2020-04-29] MEDS ORDERED: SODIUM BICARBONATE 50 MEQ/50 ML VIAL IV ONE ×2 (11:55→12:00)
[2020-04-29] MEDS: ENOXAPARIN 150 MG/ML SYRINGE SUBCUT SCH (12:10)
[2020-04-29] MEDS: MEROPENEM 500 MG in SODIUM CHLORIDE 0.9% 100 ML IV SCH (13:32)
[2020-04-29] MEDS ORDERED: FUROSEMIDE 40 MG/4 ML VIAL IV SCH (16:00)
[2020-04-29] MEDS: SODIUM BICARB INJ 150 MEQ in STERILE WATER INJ 850 ML IV SCH (16:15)
[2020-04-29 16:27] LABS: ABG Base Excess -7.5 MMOL/L (-2.5-2.5); ABG HCO3 18.2 MMOL/L (20-26); ABG Oxygen Saturation 90.6 % (95-100); ABG PCO2 54.5 MM HG (35-48); ABG PO2 77.5 MM HG (80-95); ABG TCO2 19.9 MMOL/L (23-27); Allen Test Positive; Pt O2 Delivery Device Ventilator
[2020-04-29 16:30] LABS: ABG PH 7.188 (7.35-7.45)
[2020-04-29 18:02] LABS: ABG Base Excess -6.6 MMOL/L (-2.5-2.5); ABG HCO3 18.8 MMOL/L (20-26); ABG Oxygen Saturation 82.7 % (95-100); ABG PCO2 41.5 MM HG (35-48); ABG PH 7.283 (7.35-7.45); ABG TCO2 18.7 MMOL/L (23-27); Allen Test Positive; Pt O2 Delivery Device Ventilator
[2020-04-30] MEDS: INSULIN LISPRO 100 UNIT/ML SUBCUT SCH ×4 (00:31→17:32)
[2020-04-30] MEDS: fentaNYL INJ 2,500 MCG in SODIUM CHLORIDE 0.9% 75 ML IV PRN ×3 (00:38→21:43)
[2020-04-30] MEDS: ALBUTEROL INHALER 18 GM INH SCH ×5 (02:24→20:56)
[2020-04-30] MEDS: hydrALAZINE 25 MG TABLET PO SCH ×4 (02:24→20:55)
[2020-04-30] MEDS: CISATRACURIUM 200 MG in SODIUM CHLORIDE 0.9% 180 ML IV PRN ×4 (02:33→15:00)
[2020-04-30] MEDS: methylPREDNISolone SOD SUC 40 MG/1 ML VIAL IV SCH ×2 (03:56→16:34)
[2020-04-30 04:17] LABS: ABG Base Excess -7.6 MMOL/L (-2.5-2.5); ABG HCO3 19.7 MMOL/L (20-26); ABG Oxygen Saturation 95.8 % (95-100); ABG PCO2 48.8 MM HG (35-48); ABG PH 7.224 (7.35-7.45); ABG PO2 100.9 MM HG (80-95); ABG TCO2 21.2 MMOL/L (23-27); Allen Test Positive; Pt O2 Delivery Device Ventilator
[2020-04-30 05:47] LABS: Basophils % 0.1 % (0.0-0.8); Eosinophils % 0.2 % (0.00-10.9); Hematocrit 21.3 VOL% (42.0-52.0); Hemoglobin 7.5 GM/DL (14.0-18.0); Immature Granulocytes % 3.7 %; Immature Granulocytes Absolute 0.75 #; Lymphocytes # 0.7 10*3/uL (1.4-4.0); Lymphocytes % 3.5 % (21.2-54.2); Mean Corpuscular HGB Conc 35.2 GM/DL (32-36); Mean Corpuscular Volume 83.2 FL (87-102); Monocytes % 8.3 % (1.7-12.7); Neutrophils % 84.2 % (38.7-73.9); Platelet Count 190 T/CUMM (130-400); Red Blood Count 2.56 MC/CUMM (3.8-5.5); Red Cell Distribution Width 14.2 % (9.3-17.3); White Blood Count 20.2 T/CUMM (4-12)
[2020-04-30 06:09] LABS: Hypochromasia 1+; Lymphocytes 3 % (20-55); Microcytosis 1+; Segmented Neutrophils 96 % (50-85); Total Cells Counted 100
[2020-04-30 06:10] LABS: Platelet Estimate Adequate; Target Cells Slight; Tear Drop Cells Slight
[2020-04-30 06:26] LABS: Albumin 1.6 G/DL (3.4-5.0); Bilirubin,Total 0.9 MG/DL (0.2-1.0); Calcium 8.5 MG/DL (8.5-10.1); Ferritin 4382.2 ng/ml (26-388); Osmolality,Calculated 294.5 MOS/KG (273-304)
[2020-04-30 06:34] LABS: Potassium 6.2 MMOL/L (3.5-5.1)
[2020-04-30] MEDS: INSULIN GLARGINE 100 UNIT/ML SUBCUT SCH (08:06)
[2020-04-30] MEDS: CETIRIZINE 10 MG TABLET PO SCH (08:07)
[2020-04-30] MEDS: METOPROLOL TARTRATE 25 MG TABLET PO SCH ×2 (08:07→20:55)
[2020-04-30] MEDS: ASCORBIC ACID 500 MG TABLET PO SCH ×2 (08:07→20:55)
[2020-04-30] MEDS: FAMOTIDINE 20 MG TABLET PO SCH ×2 (08:07→20:55)
[2020-04-30] MEDS: FERROUS SULFATE 325 MG TABLET PO SCH (08:07)
[2020-04-30] MEDS: FOLIC ACID 1 MG TABLET PO SCH (08:07)
[2020-04-30] MEDS: MENTHOL/ZINC OXIDE OINT 71 GM JAR TOP SCH ×2 (08:07→20:56)
[2020-04-30] MEDS: ZINC GLUCONATE 50 MG TABLET PO SCH (08:07)
[2020-04-30] MEDS ORDERED: SODIUM CHLORIDE 0.9% 1,000 ML IV PRN ×2 (08:20→08:23)
[2020-04-30] MEDS: amLODIPine 10 MG TABLET PO SCH (09:42)
[2020-04-30] MEDS: ENOXAPARIN 150 MG/ML SYRINGE SUBCUT SCH (11:55)
[2020-04-30] MEDS: MEROPENEM 500 MG in SODIUM CHLORIDE 0.9% 100 ML IV SCH (14:25)
[2020-04-30] MEDS: SODIUM BICARB INJ 150 MEQ in STERILE WATER INJ 850 ML IV SCH (17:07)
[2020-04-30] MEDS: hydrALAZINE 20 MG/1 ML VIAL IV PRN (17:14)
[2020-05-01] MEDS: INSULIN LISPRO 100 UNIT/ML SUBCUT SCH ×4 (00:35→18:58)
[2020-05-01] MEDS: ALBUTEROL INHALER 18 GM INH SCH ×7 (00:35→22:54)
[2020-05-01] MEDS: hydrALAZINE 25 MG TABLET PO SCH ×4 (02:23→20:17)
[2020-05-01] MEDS: methylPREDNISolone SOD SUC 40 MG/1 ML VIAL IV SCH ×2 (04:25→16:09)
[2020-05-01] MEDS: fentaNYL INJ 2,500 MCG in SODIUM CHLORIDE 0.9% 75 ML IV PRN ×3 (04:27→18:45)
[2020-05-01 04:43] LABS: Basophils % 0.1 % (0.0-0.8); Eosinophils # 0.1 10*3/uL (0.0-0.87); Eosinophils % 0.4 % (0.00-10.9); Hematocrit 20.5 VOL% (42.0-52.0); Hemoglobin 7.3 GM/DL (14.0-18.0); Immature Granulocytes Absolute 0.42 #; Lymphocytes # 0.5 10*3/uL (1.4-4.0); Lymphocytes % 3.5 % (21.2-54.2); Mean Corpuscular HGB Conc 35.6 GM/DL (32-36); Mean Platelet Volume 12.5 FL (9.6-12.0); Monocytes % 8.6 % (1.7-12.7); Neutrophils % 84.4 % (38.7-73.9); Platelet Count 189 T/CUMM (130-400); Red Blood Count 2.53 MC/CUMM (3.8-5.5); Red Cell Distribution Width 14.6 % (9.3-17.3)
[2020-05-01] MEDS: CISATRACURIUM 200 MG in SODIUM CHLORIDE 0.9% 180 ML IV PRN ×4 (04:52→21:45)
[2020-05-01 04:54] LABS: ABG Base Excess -4.7 MMOL/L (-2.5-2.5); ABG HCO3 20.5 MMOL/L (20-26); ABG Oxygen Saturation 98.9 % (95-100); ABG PCO2 47.6 MM HG (35-48); ABG PH 7.275 (7.35-7.45); ABG TCO2 20.7 MMOL/L (23-27)
[2020-05-01 05:10] LABS: Eosinophils 1 % (0-10); Hypochromasia 1+; Lymphocytes 1 % (20-55); Microcytosis 1+; Myelocytes 1 %; Segmented Neutrophils 90 % (50-85); Target Cells Slight; Total Cells Counted 100
[2020-05-01 05:11] LABS: Rouleau Slight
[2020-05-01 05:18] LABS: Calcium 8.2 MG/DL (8.5-10.1); Osmolality,Calculated 291.8 MOS/KG (273-304); Potassium 5.6 MMOL/L (3.5-5.1)
[2020-05-01 05:55] VITALS: BP 110/57
[2020-05-01] MEDS: FAMOTIDINE 20 MG TABLET PO SCH ×2 (08:03→20:17)
[2020-05-01] MEDS: FERROUS SULFATE 325 MG TABLET PO SCH (08:03)
[2020-05-01] MEDS: CETIRIZINE 10 MG TABLET PO SCH (08:03)
[2020-05-01] MEDS: FOLIC ACID 1 MG TABLET PO SCH (08:03)
[2020-05-01] MEDS: METOPROLOL TARTRATE 25 MG TABLET PO SCH ×2 (08:03→20:17)
[2020-05-01] MEDS: ASCORBIC ACID 500 MG TABLET PO SCH ×2 (08:03→20:17)
[2020-05-01] MEDS: ZINC GLUCONATE 50 MG TABLET PO SCH (08:03)
[2020-05-01] MEDS: INSULIN GLARGINE 100 UNIT/ML SUBCUT SCH (08:04)
[2020-05-01] MEDS: amLODIPine 10 MG TABLET PO SCH (09:11)
[2020-05-01] MEDS: MENTHOL/ZINC OXIDE OINT 71 GM JAR TOP SCH ×2 (09:11→20:17)
[2020-05-01] MEDS: ERGOCALCIFEROL 50,000 UNIT CAPSULE PO SCH (09:12)
[2020-05-01] MEDS: ENOXAPARIN 150 MG/ML SYRINGE SUBCUT SCH (11:57)
[2020-05-01] MEDS ORDERED: HEPARIN 5,000 UNIT/1 ML VIAL SUBCUT SCH (13:30)
[2020-05-01] MEDS: MEROPENEM 500 MG in SODIUM CHLORIDE 0.9% 100 ML IV SCH (14:26)
[2020-05-01] MEDS: SODIUM CHLORIDE 1 GM TABLET PO SCH ×2 (15:27→20:17)
[2020-05-01] MEDS: SODIUM BICARB INJ 150 MEQ in STERILE WATER INJ 850 ML IV SCH ×2 (17:05→23:08)
[2020-05-02] MEDS: fentaNYL INJ 2,500 MCG in SODIUM CHLORIDE 0.9% 75 ML IV PRN ×5 (00:34→23:21)
[2020-05-02] MEDS: INSULIN LISPRO 100 UNIT/ML SUBCUT SCH ×4 (00:34→17:26)
[2020-05-02] MEDS: CISATRACURIUM 200 MG in SODIUM CHLORIDE 0.9% 180 ML IV PRN ×5 (01:48→20:13)
[2020-05-02] MEDS: ALBUTEROL INHALER 18 GM INH SCH ×5 (02:46→20:48)
[2020-05-02] MEDS: hydrALAZINE 25 MG TABLET PO SCH ×4 (02:46→20:48)
[2020-05-02] MEDS: methylPREDNISolone SOD SUC 40 MG/1 ML VIAL IV SCH ×2 (04:07→15:42)
[2020-05-02 04:36] LABS: ABG Base Excess -7.3 MMOL/L (-2.5-2.5); ABG HCO3 20.5 MMOL/L (20-26); ABG Oxygen Saturation 93.5 % (95-100); ABG PCO2 52.2 MM HG (35-48); ABG PH 7.211 (7.35-7.45); ABG PO2 84.1 MM HG (80-95); ABG TCO2 22.1 MMOL/L (23-27)
[2020-05-02 05:04] LABS: Basophils % 0.1 % (0.0-0.8); Eosinophils % 0.1 % (0.00-10.9); Hematocrit 21.1 VOL% (42.0-52.0); Hemoglobin 7.4 GM/DL (14.0-18.0); Immature Granulocytes % 1.8 %; Immature Granulocytes Absolute 0.26 #; Lymphocytes # 0.5 10*3/uL (1.4-4.0); Lymphocytes % 3.6 % (21.2-54.2); Mean Corpuscular HGB Conc 35.1 GM/DL (32-36); Mean Corpuscular Volume 82.4 FL (87-102); Mean Platelet Volume 12.3 FL (9.6-12.0); Monocytes % 6.2 % (1.7-12.7); Neutrophils % 88.2 % (38.7-73.9); Platelet Count 227 T/CUMM (130-400); Red Blood Count 2.56 MC/CUMM (3.8-5.5); Red Cell Distribution Width 14.7 % (9.3-17.3); White Blood Count 14.7 T/CUMM (4-12)
[2020-05-02 05:18] LABS: Calcium 8.4 MG/DL (8.5-10.1); Osmolality,Calculated 291.2 MOS/KG (273-304)
[2020-05-02 05:25] LABS: Potassium 6.4 MMOL/L (3.5-5.1)
[2020-05-02 05:26] LABS: Band Neutrophils 1 % (0-10); Eosinophils 1 % (0-10); Hypersegmented Neutrophil SLIGHT; Hypochromasia 1+; Lymphocytes 3 % (20-55); Microcytosis 1+; Segmented Neutrophils 88 % (50-85); Total Cells Counted 100
[2020-05-02 05:27] LABS: Target Cells Slight
[2020-05-02] MEDS ORDERED: SODIUM CHLORIDE 0.9% 1,000 ML IV PRN (07:12)
[2020-05-02] MEDS: FOLIC ACID 1 MG TABLET PO SCH (08:22)
[2020-05-02] MEDS: FERROUS SULFATE 325 MG TABLET PO SCH (08:22)
[2020-05-02] MEDS: ASCORBIC ACID 500 MG TABLET PO SCH ×2 (08:22→20:48)
[2020-05-02] MEDS: FAMOTIDINE 20 MG TABLET PO SCH ×2 (08:22→20:49)
[2020-05-02] MEDS: ZINC GLUCONATE 50 MG TABLET PO SCH (08:22)
[2020-05-02] MEDS: CETIRIZINE 10 MG TABLET PO SCH (08:22)
[2020-05-02] MEDS: SODIUM CHLORIDE 1 GM TABLET PO SCH ×2 (08:22→20:48)
[2020-05-02] MEDS: MENTHOL/ZINC OXIDE OINT 71 GM JAR TOP SCH ×2 (08:23→20:48)
[2020-05-02] MEDS: METOPROLOL TARTRATE 25 MG TABLET PO SCH ×2 (08:38→20:48)
[2020-05-02] MEDS: INSULIN GLARGINE 100 UNIT/ML SUBCUT SCH (09:35)
[2020-05-02] MEDS: amLODIPine 10 MG TABLET PO SCH (09:36)
[2020-05-02] MEDS: APIXABAN 5 MG TABLET PO SCH ×2 (12:34→20:48)
[2020-05-02] MEDS: MEROPENEM 500 MG in SODIUM CHLORIDE 0.9% 100 ML IV SCH (13:08)
[2020-05-02] MEDS: ACETAMINOPHEN 325 MG TABLET PO PRN (14:03)
[2020-05-02] MEDS ORDERED: EPINEPHrine 1 MG/10 ML SYRINGE IV ONE (15:25)
[2020-05-02] MEDS: SODIUM BICARB INJ 150 MEQ in STERILE WATER INJ 850 ML IV SCH (15:44)
[2020-05-03] MEDS: ALBUTEROL INHALER 18 GM INH SCH ×7 (00:15→23:27)
[2020-05-03] MEDS: INSULIN LISPRO 100 UNIT/ML SUBCUT SCH ×4 (00:15→17:32)
[2020-05-03] MEDS: CISATRACURIUM 200 MG in SODIUM CHLORIDE 0.9% 180 ML IV PRN ×5 (00:36→23:27)
[2020-05-03] MEDS: hydrALAZINE 25 MG TABLET PO SCH ×4 (04:06→20:02)
[2020-05-03] MEDS: methylPREDNISolone SOD SUC 40 MG/1 ML VIAL IV SCH ×2 (04:07→16:10)
[2020-05-03 04:35] LABS: Basophils % 0.1 % (0.0-0.8); Eosinophils # 0.1 10*3/uL (0.0-0.87); Eosinophils % 0.3 % (0.00-10.9); Hematocrit 24.2 VOL% (42.0-52.0); Hemoglobin 8.4 GM/DL (14.0-18.0); Immature Granulocytes Absolute 0.19 #; Lymphocytes # 0.5 10*3/uL (1.4-4.0); Lymphocytes % 2.5 % (21.2-54.2); Mean Corpuscular HGB Conc 34.7 GM/DL (32-36); Mean Corpuscular Volume 82.6 FL (87-102); Mean Platelet Volume 11.9 FL (9.6-12.0); Monocytes % 6.3 % (1.7-12.7); Neutrophils % 89.8 % (38.7-73.9); Platelet Count 225 T/CUMM (130-400); Red Blood Count 2.93 MC/CUMM (3.8-5.5); White Blood Count 18.1 T/CUMM (4-12)
[2020-05-03 04:42] LABS: Allen Test Positive; Pt O2 Delivery Device Ventilator
[2020-05-03 04:46] LABS: ABG Base Excess -6.3 MMOL/L (-2.5-2.5); ABG HCO3 20.9 MMOL/L (20-26); ABG Oxygen Saturation 87.2 % (95-100); ABG PCO2 49.7 MM HG (35-48); ABG PH 7.241 (7.35-7.45); ABG PO2 64.4 MM HG (80-95); ABG TCO2 22.4 MMOL/L (23-27)
[2020-05-03 05:02] LABS: Lymphocytes 2 % (20-55); Promyelocytes 1 %; Segmented Neutrophils 95 % (50-85); Total Cells Counted 100
[2020-05-03 05:03] LABS: Calcium 8.7 MG/DL (8.5-10.1); Hypochromasia 1+; Microcytosis 1+; Osmolality,Calculated 284.2 MOS/KG (273-304); Platelet Estimate Normal; Potassium 5.7 MMOL/L (3.5-5.1)
[2020-05-03] MEDS: fentaNYL INJ 2,500 MCG in SODIUM CHLORIDE 0.9% 75 ML IV PRN ×3 (05:06→18:07)
[2020-05-03] MEDS: ZINC GLUCONATE 50 MG TABLET PO SCH (08:04)
[2020-05-03] MEDS: ASCORBIC ACID 500 MG TABLET PO SCH ×2 (08:04→20:01)
[2020-05-03] MEDS: FERROUS SULFATE 325 MG TABLET PO SCH (08:04)
[2020-05-03] MEDS: SODIUM CHLORIDE 1 GM TABLET PO SCH ×2 (08:05→20:02)
[2020-05-03] MEDS: CETIRIZINE 10 MG TABLET PO SCH (08:05)
[2020-05-03] MEDS: FOLIC ACID 1 MG TABLET PO SCH (08:05)
[2020-05-03] MEDS: APIXABAN 5 MG TABLET PO SCH ×2 (08:05→20:02)
[2020-05-03] MEDS: FAMOTIDINE 20 MG TABLET PO SCH ×2 (08:05→20:02)
[2020-05-03] MEDS: MENTHOL/ZINC OXIDE OINT 71 GM JAR TOP SCH ×2 (08:05→20:02)
[2020-05-03] MEDS: METOPROLOL TARTRATE 25 MG TABLET PO SCH ×2 (08:06→20:02)
[2020-05-03] MEDS: amLODIPine 10 MG TABLET PO SCH (10:05)
[2020-05-03] MEDS: MEROPENEM 500 MG in SODIUM CHLORIDE 0.9% 100 ML IV SCH (13:07)
[2020-05-03] MEDS: SODIUM BICARB INJ 150 MEQ in STERILE WATER INJ 850 ML IV SCH (15:15)
[2020-05-04] MEDS: methylPREDNISolone SOD SUC 40 MG/1 ML VIAL IV SCH ×3 (00:24→16:50)
[2020-05-04] MEDS: INSULIN LISPRO 100 UNIT/ML SUBCUT SCH ×4 (00:24→17:28)
[2020-05-04] MEDS: fentaNYL INJ 2,500 MCG in SODIUM CHLORIDE 0.9% 75 ML IV PRN ×2 (02:34→12:45)
[2020-05-04] MEDS: hydrALAZINE 25 MG TABLET PO SCH ×4 (04:10→20:43)
[2020-05-04] MEDS: ALBUTEROL INHALER 18 GM INH SCH ×5 (04:11→20:42)
[2020-05-04 04:13] LABS: ABG Base Excess -7.2 MMOL/L (-2.5-2.5); ABG HCO3 20.2 MMOL/L (20-26); ABG Oxygen Saturation 96.8 % (95-100); ABG PCO2 49.8 MM HG (35-48); ABG PH 7.225 (7.35-7.45); ABG PO2 108.4 MM HG (80-95); ABG TCO2 21.7 MMOL/L (23-27); Allen Test Positive; Pt O2 Delivery Device Ventilator
[2020-05-04 04:56] LABS: Basophils % 0.1 % (0.0-0.8); Eosinophils % 0.1 % (0.00-10.9); Hematocrit 21.7 VOL% (42.0-52.0); Hemoglobin 7.8 GM/DL (14.0-18.0); Immature Granulocytes Absolute 0.18 #; Lymphocytes # 0.4 10*3/uL (1.4-4.0); Mean Corpuscular HGB Conc 35.9 GM/DL (32-36); Mean Corpuscular Volume 81.6 FL (87-102); Mean Platelet Volume 11.8 FL (9.6-12.0); Monocytes % 4.6 % (1.7-12.7); Neutrophils % 92.2 % (38.7-73.9); Platelet Count 212 T/CUMM (130-400); Red Blood Count 2.66 MC/CUMM (3.8-5.5); Red Cell Distribution Width 15.1 % (9.3-17.3); White Blood Count 17.3 T/CUMM (4-12)
[2020-05-04 05:10] LABS: Calcium 8.6 MG/DL (8.5-10.1); Osmolality,Calculated 283.6 MOS/KG (273-304)
[2020-05-04 05:13] LABS: Potassium 6.7 MMOL/L (3.5-5.1)
[2020-05-04 05:30] LABS: Lymphocytes 1 % (20-55); Segmented Neutrophils 94 % (50-85); Total Cells Counted 100
[2020-05-04 05:32] LABS: Hypochromasia 2+; Platelet Estimate Adequate; Target Cells Few
[2020-05-04] MEDS: CISATRACURIUM 200 MG in SODIUM CHLORIDE 0.9% 180 ML IV PRN ×2 (06:44→18:26)
[2020-05-04] MEDS ORDERED: SODIUM POLYSTYRENE SULFATE 15 GM/60 ML BOTTLE PO ONE (07:56)
[2020-05-04] MEDS ORDERED: SODIUM BICARBONATE 50 MEQ/50 ML VIAL IV ONE (07:58)
[2020-05-04] MEDS ORDERED: VANCOMYCIN INJ 1,000 MG in SODIUM CHLORIDE 0.9% 250 ML IV SCH (08:00)
[2020-05-04] MEDS: CETIRIZINE 10 MG TABLET PO SCH (08:02)
[2020-05-04] MEDS: ASCORBIC ACID 500 MG TABLET PO SCH ×2 (08:02→20:23)
[2020-05-04] MEDS: METOPROLOL TARTRATE 25 MG TABLET PO SCH ×2 (08:02→20:23)
[2020-05-04] MEDS: FOLIC ACID 1 MG TABLET PO SCH (08:02)
[2020-05-04] MEDS: ZINC GLUCONATE 50 MG TABLET PO SCH (08:02)
[2020-05-04] MEDS: APIXABAN 5 MG TABLET PO SCH ×2 (08:02→20:23)
[2020-05-04] MEDS: FERROUS SULFATE 325 MG TABLET PO SCH (08:02)
[2020-05-04] MEDS: SODIUM CHLORIDE 1 GM TABLET PO SCH ×2 (08:03→20:23)
[2020-05-04] MEDS: FAMOTIDINE 20 MG TABLET PO SCH ×2 (08:03→20:23)
[2020-05-04] MEDS: SODIUM BICARB INJ 150 MEQ in STERILE WATER INJ 850 ML IV SCH ×2 (08:46→16:24)
[2020-05-04] MEDS: amLODIPine 10 MG TABLET PO SCH (08:49)
[2020-05-04] MEDS: MENTHOL/ZINC OXIDE OINT 71 GM JAR TOP SCH ×2 (08:49→20:43)
[2020-05-04] MEDS ORDERED: ALBUMIN 25% 50 GM in PREMIX 1 EACH IV ONE (11:50)
[2020-05-04] MEDS ORDERED: LEVOFLOXACIN INJ 750 MG in PREMIX 1 EACH IV SCH (14:00)
[2020-05-04] MEDS: MEROPENEM 500 MG in SODIUM CHLORIDE 0.9% 100 ML IV SCH (14:01)
[2020-05-04] MEDS ORDERED: VANCOMYCIN INJ 2,500 MG in SODIUM CHLORIDE 0.9% 500 ML IV ONE (18:00)
[2020-05-04] MEDS ORDERED: AMIODARONE 150 MG/3 ML VIAL ONE (20:53)
[2020-05-04] MEDS ORDERED: CALCIUM CHLORIDE 1,000 MG/10 ML SYRINGE IV ONE (20:53)
[2020-05-04] MEDS ORDERED: EPINEPHrine 1 MG/10 ML SYRINGE ONE (20:53)
[2020-05-04] MEDS ORDERED: SODIUM BICARBONATE 50 MEQ/50 ML SYRINGE IV ONE (20:53)
[2020-05-04] MEDS ORDERED: MAGNESIUM SULFATE 1 GM/2 ML VIAL ONE (20:53)
[2020-05-04] MEDS ORDERED: SODIUM CHLORIDE 0.9% 500 ML IV ONE (21:04)
[2020-05-04] MEDS ORDERED: DOPamine 800 MG/250 ML PREMIX IV PRN (21:07)
[2020-05-04] MEDS ORDERED: AMIODARONE INJ 150 MG in DEXTROSE 5% 100 ML IV ONE (21:08)
[2020-05-04 21:09] LABS: Basophils % 0.1 % (0.0-0.8); Hematocrit 21.9 VOL% (42.0-52.0); Hemoglobin 7.4 GM/DL (14.0-18.0); Immature Granulocytes % 1.8 %; Immature Granulocytes Absolute 0.38 #; Lymphocytes # 2.6 10*3/uL (1.4-4.0); Lymphocytes % 12.1 % (21.2-54.2); Mean Corpuscular HGB Conc 33.8 GM/DL (32-36); Mean Corpuscular Volume 84.9 FL (87-102); Mean Platelet Volume 11.7 FL (9.6-12.0); Monocytes % 5.7 % (1.7-12.7); NRBC # 0.06 10*3/uL; Neutrophils % 80.3 % (38.7-73.9); Platelet Count 209 T/CUMM (130-400); Red Blood Count 2.58 MC/CUMM (3.8-5.5); Red Cell Distribution Width 15.4 % (9.3-17.3); White Blood Count 21.2 T/CUMM (4-12)
[2020-05-04] MEDS ORDERED: AMIODARONE 450 MG/9 ML VIAL IV ONE (21:11)
[2020-05-04 21:20] LABS: Allen Test Positive; Pt O2 Delivery Device Ventilator
[2020-05-04 21:21] LABS: ABG Base Excess -7.5 MMOL/L (-2.5-2.5); ABG HCO3 17.7 MMOL/L (20-26); ABG TCO2 24.9 MMOL/L (23-27)
[2020-05-04 21:23] LABS: ABG PCO2 94.6 MM HG (35-48); ABG PH 7.023 (7.35-7.45)
[2020-05-04] MEDS ORDERED: EPINEPHrine 1 MG/ML VIAL ONE (21:26)
[2020-05-04 21:29] LABS: PT Patient Result 10.3 SECS (9.8-11.9); Partial Thromboplastin Time 35.8 SECS (23.9-33.8)
[2020-05-04 21:30] LABS: Hypochromasia 3+; Lymphocytes 8 % (20-55); Ovalocytes Slight; Segmented Neutrophils 89 % (50-85); Total Cells Counted 100
[2020-05-04] MEDS ORDERED: AMIODARONE INJ 450 MG in DEXTROSE 5% 241 ML IV SCH (21:30)
[2020-05-04 21:37] LABS: Albumin 1.9 G/DL (3.4-5.0); Bilirubin,Total 1.2 MG/DL (0.2-1.0); Calcium 8.1 MG/DL (8.5-10.1); Osmolality,Calculated 294.7 MOS/KG (273-304); Potassium 5.5 MMOL/L (3.5-5.1); Total Protein 7.7 G/DL (5.0-7.5)
[2020-05-05] MEDS ORDERED: ALBUMIN 25% 25 GM in PREMIX 1 EACH IV PRN (12:00)
[2020-05-07] MEDS ORDERED: VANCOMYCIN INJ 1,500 MG in SODIUM CHLORIDE 0.9% 500 ML IV PRN (18:00)
[2020-05-07] MEDS ORDERED: VANCOMYCIN INJ 1,250 MG in SODIUM CHLORIDE 0.9% 250 ML IV PRN (18:00)
== END 2020-05-04 21:46 | disposition expired | DRG 130 ==
LOC: EDBD → EDUNIT# → N.ED 11:11 → N.EDINP 14:23 → SUATTDRO 14:23 → N.EDINP 15:24 → N.2E 15:34 → N.CC 04-19 14:48
PROVIDERS: ADMIT Internal Medicine Geriatric Medicine; ATTEND Internal Medicine